=== PATIENT | male | born 1930 | race Caucasian/White ===

== ENCOUNTER 2016-03-18 15:25 | Inpatient (IN) | payer MEDICARE ==
[~2016-03-18] VITALS: Ht 180.3 cm; Wt 53.1 kg
[2016-03-18] VITALS (14 sets, daily range): BP systolic 101–157; BP diastolic 57–89; PULSE 103–130; RESP 20–40; O2SAT 77–98
--- NOTE | 2016-03-18 15:59 | ED.REPORT ---
HPI-Dyspnea / Wheezing Date of Service Mar 18, 2016 ED Provider: Naeem Fuentes MD History of Present Illness: OCC Pt is an 85 year old male with a hx of stage 4 COPD and DM presenting to the ED via EMS complaining of SOB worsened in the last 8-10 days. Associated symptoms include one day of diarrhea. Denies nausea, vomiting or swelling. He states that he has had recent stressors, his daughter was critically ill in the hospital. The pt's daughter states that he has been coughing less than normal in the last 3 days. He denies a recent medication change, recent antibiotic use , or hx of heart problems. He has had previous similar symptoms. The pt is normally on 3 L O2 at home but increased to 4 L with his worsened symptoms. Pt last saw Dr. Wick 3 or 4 weeks ago. Nursing Notes Stated Complaint: DIFFICULTY BREATHING Chief Complaint: Respiratory Distress Nursing Notes Reviewed: Yes ([employer] not reconciled) Allergies: Coded Allergies: No Known Allergies (Verified , 03/18/16) Scheduled Budesonide/Formoterol 160-4.5 mcg Inh (Symbicort 160-4.5 mcg Inh) 120 Puff Inhaler 1 PUFF INHALATION BID Glipizide (Glipizide) 5 Mg Tablet 2.5 MG PO BID Metformin (Glucophage) 1,000 Mg Tablet 1,000 MG PO BID Simvastatin (Simvastatin) 20 Mg Tablet 10 MG PO HS General Time Seen by MD: 15:57 Chief Complaint Shortness of breath Hx Obtained From: Patient, EMS Arrived By: Ambulance Sudden in Onset?: No Onset Occurred: 1 week ago Symptom Duration: Since onset Quality: Painful Severity: Current: Mild Severity: Maximum: Mild Recent Healthcare: No recent doctor visit, No recent hospitalization Similar Sx Previous: Yes Past Medical History Past Medical History COPD on home O2 at 3 L at baseline Type II diabetic Hypercholesterolemia Reports: COPD (Stage 4), Diabetes mellitus Past Surgical History Bowel Obstruction Reports: Appendectomy Smoking History Former Smoker Social History Drug Use: Denies drug use Review of Systems Respiratory: Reports: Shortness of breath, Denies: Non-productive cough Musculoskeletal: Denies: Extremity swelling Complete sys rev & neg: except as marked. GI: Reports: Diarrhea, Denies: Nausea, Vomiting Physical Exam Initial Vital Signs Vital Signs (First) Date Time Temp Pulse Resp B/P Pulse Ox O2 Delivery O2 Flow Rate FiO2 03/18/16 15:51 36.3 118 24 148/58 94 Nasal Cannula 4.5 Initial VS: Reviewed, Vital signs abnormal Head / Eyes: Atraumatic, Normocephalic, PERRL ENT: Mucous membranes moist, Conjunctiva normal, No scleral icterus Abdomen / GI: Soft, Non-tender, No guarding, No rebound, No distention Extremities: Vascular intact, Neuro intact, No swelling, No tenderness Skin: Warm, Dry, No cyanosis Neurologic: Alert, Oriented, Nonfocal Psychiatric: Mood/affect normal, Behavior normal, Normal thought content General/Constitutional: Awake, Alert Appearance / Presentation: Positive: Cachectic, Frail Globally weak. Respiratory / Chest: No chest tenderness Wheezing / Retractions: Positive: Wheeze insp/exp diffuse (In all browning) Rales / Rhonchi: Positive: Rhonchi diffuse (In all browning) Hacking cough and rhonchi audible from across the room. Dyspnic which he reports is baseline. Lower Extremity / Pelvis / MS: No edema Interpretation & Diagnostics Interpretation & Diagnostics: BLOOD GAS: pH:7.206 pCO2:84 pO2:60.6 cHCO3:31.8 cBase:1.3 - indicative of acute hypercapnic respiratory failure Lab Results Interpretation Result Diagram: 03/18/16 1547 03/18/16 2145 Test 03/18/16 15:47 03/18/16 17:03 03/18/16 18:11 White Blood Count 11.7th/mm3 (3.8-10.1) Red Blood Count 4.89mil/mm3 (4.40-5.80) Hemoglobin 14.5g/dL (13.8-17.2) Hematocrit 46.1% (41.0-50.0) Mean Corpuscular Volume 94.3fL (81-100) Mean Corpuscular Hemoglobin 29.7pg (27.0-35.0) Mean Corpuscular Hemoglobin Concent 31.5% (32.0-37.0) Red Cell Distribution Width 13.6% (12.3-15.4) Platelet Count 400bil/L (150-400) Neutrophils (%) (Auto) 65.6% (40-74) Lymphocytes (%) (Auto) 19.4% (14-46) Monocytes (%) (Auto) 14.2% (4-12) Eosinophils (%) (Auto) 0% (0-5) Basophils (%) (Auto) 0.3% (0-3) Hold Purple Top Tube Received (Received) Hold Blue Top Tube Received (Received) Sodium Level 136mEq/L (134-144) Chloride Level 92mEq/L (97-108) Carbon Dioxide Level 29mmol/L (18-29) Blood Urea Nitrogen 21mg/dL (8-27) Creatinine 0.53mg/dL (0.76-1.27) Estimat Glomerular Filtration Rate 157mL/min (>59) Glucose Level 296mg/dL (60-99) Calcium Level 9.8mg/dL (8.5-10.1) Magnesium Level 2.0mg/dL (1.6-2.6) Total Bilirubin 0.6mg/dL (0.0-1.2) Aspartate Amino Transf (AST/SGOT) 28U/L (0-50) Alanine Aminotransferase (ALT/SGPT) 31U/L (0-44) Alkaline Phosphatase 86U/L (25-160) Troponin T < 0.010ug/L (0.0-0.011) Total Protein 7.9g/dL (6.4-8.4) Albumin 3.5g/dL (3.4-5.0) Hold Red Top Tube Received (Received) Hold [place] Top Tube Received (Received) Lactic Acid Level 1.6mmol/L (0.4-2.0) Urine Color Yellow (YELLOW) Urine Appearance Clear (CLEAR,HAZY) Urine pH 5.5 (5.0-8.0) Urine Specific [place] 1.037 (1.003-1.035) Urine Protein 100mg/dL (NEG,TRACE) Urine Glucose (UA) 500mg/dL (NEGATIVE) Urine Ketones 15mg/dL (NEGATIVE) Urine Occult Blood Negative (NEGATIVE) Urine Nitrite Negative (NEGATIVE) Urine Bilirubin Negative (NEGATIVE) Urine Urobilinogen Normalmg/dL (NORMAL) Urine Leukocyte Esterase Negative (NEGATIVE) Urine RBC 0-2/hpf (0-2) Urine WBC 6-10/hpf (0-5) Urine Epithelial Cells Few/hpf (NONE-MOD) Urine Crystals Amorphous urates (NONE Urine Bacteria Moderate/hpf (NONE-FEW) Urine Hyaline Casts 5/20/lpf (NONE) Urine Granular Casts None seen (NONE SEEN) Urine Waxy Casts None seen (NONE SEEN) Urine Red Blood Cell Casts None seen (NONE SEEN) Urine White Blood Cell Casts None seen (NONE SEEN) Urine Mucus Present (None Seen) Urine Trichomonas None seen (NONE SEEN) Urine Yeast None (NONE SEEN) Urinalysis Comment None Urine Culture Reflexed Indicated Lab Results Interpretation: CBC mild leukocytosis CMP marginally elevated potassium of uncertain significance Lactic acid is normal Troponins normal Blood cultures 2 pending Influenza screen negative ECG Interpretation ECG Interpretation: Sinus tachycardia, rate 102. Borderline RBBB. Non-specific T wave abnormalities inferioirally. No prior EKG for comparison. Time: 17:20 Interpreted by: ED physician ECG Interpretation: More tachycardic but has received multiple nebs. More movement making baseline slightly more difficult. Overall unchanged. Time: 19:48 Interpreted by: ED physician X-Ray Chest Interpretation Chest Xray Interpretation: IMPRESSION: Patchy pulmonary radiopacity suspicious for aspiration/infection. Short interval followup is recommended to ensure resolution of this finding and exclude underlying pulmonary pathology. Dictated by: Moraima Viera M.D. on 03/18/2016 at 18:05 View: Portable, 1 view Interpretation / Wet Read by: Interpret - Radiologist Re-Eval/Medical Decision Med Decision/Clinical Course This is an 85-year-old female on home O2 with baseline COPD presents with worsening shortness breath cough. The family has noted audible rhonchi and shortness of breath worsening over the past 2 days. It is unclear if there has been a fever, the patient does not think that woke- the family thinks there may have been. He denies chest pain, leg edema. He is turned his O2 up at home to 4 L. Here in the department he is visibly dyspneic, has decreased air movement, is audible rhonchi across the room, and audible wheezes as well throughout on exam. Think that his work of breathing is close to his baseline. He has only trace edema at the ankles, which she states is chronic and unchanged has no findings of overt DVT on exam. A chest x-ray suggestive of pneumonia superimposed on COPD. Blood work is notable for moderate leukocytosis. Patient received albuterol, Atrovent, steroids, and was started on ceftriaxone and Zithromax for community acquired pneumonia. The patient on reevaluation she seemed to be doing well. But I was called by the nurses as he had. We got worse his heart rate increased, his sat decreased , they seem to be more short of breath. Patient seemed to be tiring slightly. At this point a blood gas was obtained and did reveal hypercapnic respiratory failure. I discussed CODE STATUS, the patient does wish to be intubated and be full code if needed, does not wish sustained ventilatory support. He preferred noninvasive support initially, was immediately placed on BiPAP with ongoing continuous nebs. He did seem to improve with this. He had risk for deterioration given underlying pneumonia, but I think is reasonable given he has a baseline component of significant COPD to see if intubation can be avoided. The patient is being admitted to the unit. The case discussed the hospitalist. Source of Hx: Old records Re-Evaluation/Progress #1: Time of Eval: 18:38 Patient Status: Condition improved Re-Evaluation/Progress Note: Discussed X ray results. Re-Evaluation/Progress #2: Time of Eval: 20:55 Patient Status: Condition improved Re-Evaluation/Progress Note: Pt is still mentating well, says he feels better. Still some wheezes, but he is tolerating BiPAP well. Consultation : Referral / Consult Name: Matheus Liang MD Consulted With: Hospitalist Call Returned at: 19:12 Tractor Driver: Will see patient, Agrees with plan, Accepts admit Differential Diagnosis: Positive: COPD exacerbation, Pneumonia, Respiratory failure, Negative: Acute coronary syndrome, Cardiogenic shock, Congestive heart failure, Exercise induced asthma, Foreign body airway, PSVT, Pneumothorax, Pulmonary embolism, Respiratory insufficiency Counseled Regarding: Diagnosis, Lab results, Need for follow-up, When/why to return to ED Discharge & Departure Impression: Primary Impression: Pneumonia Pneumonia type: due to unspecified organism Laterality: unspecified laterality Lung location: unspecified part of lung Qualified Code: B99.9 - Unspecified infectious disease Additional Impressions: COPD (chronic obstructive pulmonary disease) COPD type: COPD with acute lower respiratory infection Qualified Code: J44.0 - Chronic obstructive pulmonary disease with acute lower respiratory infection Respiratory failure Chronicity: acute Respiratory failure complication: hypoxia and hypercapnia Qualified Code: J96.01 - Acute respiratory failure with hypoxia Disposition: ADMITTED TO HOSPITAL Discharge Condition All VS Reviewed: Yes Condition: Improved Referrals: Preston Cervantes MD (Family) Dora Wick MD Crit Care Except Billable Proc Time Spent: 30-74 minutes Services Performed: Patient management by me, Time spent at bedside, Reviewing test results, Reviewing imaging, Discussing patient care, Documentation in record Scribe Attestation Portions of this note were transcribed by Hope Magaña. I, Dr. Fuentes personally performed the history, physical exam and medical decision-making; I reviewed and confirmed the accuracy of the information in the transcribed note. Signed by: Indra Jara, 03/18/2016 and 1913. copies to: Dora Wick MD; Preston Cervantes MD, Matthew F MD Mar 18, 2016 15:59 HOPE MAGAÑA Mar 18, 2016 16:19
[2016-03-18] MEDS ORDERED: Ipratropium 0.02% 0.5 mg/2.5 mL Inhalation Solution NEB ONE ×2 (16:35→20:55)
[2016-03-18] MEDS ORDERED: MethylprednisoLONE Sodium Succinate 62.5 mg/mL 2 mL Inj IVPUSH ONE (16:35)
[2016-03-18] MEDS ORDERED: Albuterol 2.5 mg/3 mL Inhalation Solution NEB ONE ×3 (16:35→20:55)
[2016-03-18 16:49] LABS: EOSINOPHILS % (AUTO) 0 % (0-5); Mean Corpuscular Hemoglobin 29.7 pg (27.0-35.0)
[2016-03-18 16:53] LABS: BASOPHILS % (AUTO) 0.3 % (0-3); MONOCYTES % (AUTO) 14.2 % (4-12); Mean Corpuscular Volume 94.3 fL (81-100); NEUTROPHILS % (AUTO) 65.6 % (40-74); Platelet Count 400 bil/L (150-400)
[2016-03-18 17:07] LABS: TROPONIN T < 0.010 ug/L (0.0-0.011)
--- NOTE | 2016-03-18 18:08 | DRSVH ---
PROCEDURE: X-RAY CHEST ONE VIEW, PORTABLE ([id number]) INDICATIONS: sOB TECHNIQUE: One view of the chest was acquired. COMPARISON: None. FINDINGS: Surgical changes and devices: None. Lungs and pleura: Patchy opacities are present bilaterally most confluent at the left lung base. No p leural effusion or pneumothorax. The lung volumes are large and the diaphragms are flattened suggesti ng emphysema. Mediastinum: Mediastinal contours appear normal. Heart size is normal. The aortic arch is calcifie d. Bones and chest wall: No suspicious bony lesions. Overlying soft tissues appear unremarkable. IMPRESSION: Patchy pulmonary radiopacity suspicious for aspiration/infection. Short interval followup is recommended to ensure resolution of this finding and exclude underlying pulmonary pathology. Dictated by: Moraima Viera M.D. on 03/18/2016 at 18:05 Approved by: Moraima Viera M.D. on 03/18/2016 at 18:06
[2016-03-18] MEDS ORDERED: Azithromycin Inj 500 MG in Dextrose 5% w/Vial Mate 250 ML IV ONE (18:20)
[2016-03-18] MEDS ORDERED: cefTRIAXone Inj 2 GM in IV Premix 1 EACH IV ONE (18:20)
[2016-03-18 18:40] LABS: APPEARANCE,URINE CLEAR (CLEAR,HAZY); COLOR,URINE YELLOW (YELLOW); OCCULT BLOOD,URINE NEGATIVE (NEGATIVE); PH,URINE 5.5 (5.0-8.0); UROBILINOGEN,URINE NORMAL (NORMAL)
[2016-03-18] MEDS ORDERED: Polyethylene Glycol (PEG) 17 Gm Powder PO PRN (19:35)
[2016-03-18] MEDS ORDERED: Alum-Mag Hydrox-Simeth 30 mL Suspension PO PRN (19:35)
[2016-03-18] MEDS ORDERED: SYMINH INHALATION (19:40)
[2016-03-18] MEDS ORDERED: METF1000 PO (19:40)
[2016-03-18] MEDS ORDERED: ALBU6.7H INH (19:40)
[2016-03-18] MEDS ORDERED: GLPZ5T PO (19:40)
[2016-03-18] MEDS ORDERED: SIMV10TA4 PO (19:40)
--- NOTE | 2016-03-18 20:08 | ABG ---
DateTimeAnalyzed 20:03:00 -_ pH ____7.206 - 7.350 7.450 pCO2 ___83.5__ -mmHg 35.0 45.0 pO2 ___60.6__ -mmHg 69.0 116 HCO3- ___31.8__ -mmol/L 22.0 26.0 ABE ____1.3__ -mmol/L -2.0 2.0 tHb ___14.1__ -g/dL O2Hb ___83.4__ -% COHb ____0.7__ -% MetHb ____0.8__ -% sO2 ___84.7__ -% 25.0 FIO2 ____0.3__ -% Drawn By RB - Date/Time Notified____ 20:08:00 -_ Notified By RB - Notified Whom DR - B 762 -mmHg tO2 ___16.5__ -Vol% Augustine test _Positive -
[2016-03-18] MEDS: Albuterol-Ipratropium 3 mL Inhalation Solution NEB SCH (20:30)
[2016-03-18] MEDS ORDERED: Albuterol 2.5 mg/3 mL Inhalation Solution NEB SCH (20:30)
[2016-03-18] MEDS ORDERED: SIMV20TA4 PO (20:37)
--- NOTE | 2016-03-18 20:41 | PCM.HPMED ---
Subjective Date of Service Mar 18, 2016 Primary Provider: Admitting Physician: [facility] Attending Physician: Admit Status: From the Emergency Department, Remote Telemetry Chief Complaint: difficulty breathing History of Present Illness: Patient is an 85 year old male with a hx of stage 4 COPD and DM2 presenting to the ED via EMS complaining of SOB and cough, which worsened in the last 8-10 days. Patient states he has been coughing up more phlegm than usual, feeling feverish with chills for the past 2 days. Associated symptoms include one day of diarrhea, which has now resolved. Patient is usually on 3L of oxygen at home , but has increased t o 4L with worsening shortness of breath. Denies mylagias, CP, abdominal pain, nausea, vomiting or swelling. Patient states that his daughter which he lives with, had been coughing much and per ED records, have been critically ill in the hospital. The pt's daughter states that he has been coughing less than normal in the last 3 days. He denies a recent medication change, recent antibiotic use, or hx of heart problems. He has had previous similar symptoms. Pt last saw PCP, Dr. Wick 3 or 4 weeks ago. In the ED, patient afebrile with HR 118, RR 24, BP 140/58, saturating at 94% on 4.5L of oxygen. Labs significant for WBC 11.7 and K 5.5, glucose 296. Lactic acid 1.6. Troponin negative. ABG with pH 7.206, CO2 83.5, O2 60.6. CXR showed "Patchy pulmonary radiopacity suspicious for aspiration/infection.", patient was admitted for further evaluation and treatment. Review of Systems: 11 point ROS reviewed and negative otherwise noted on HPI. Allergies Coded Allergies: No Known Allergies (Verified , 03/18/16) Home Medications Symbicort 160-4.5 inhaler BID Floventil 90mcg 1 puff PRN Metformin 1000mg BID Glipizide 5mg daily Simvastatin 20mg 1/2 tablet qHS PMH Stage 4, COPD on 3L of oxygen at home DM2 Hypercholesteremia Surgical History Bowel obstruction Appendectomy Social History Hx Alcohol Use: No Hx Substance Use: No Hx Tobacco Use: Yes (quit 30 years ago) Smoking Status: Former Smoker Exam Vital Signs Vital Sign - Last Date Time Temp Pulse Resp B/P Pulse Ox O2 Delivery O2 Flow Rate FiO2 03/18/16 19:34 123 24 157/89 95 Venturi Mask 8 03/18/16 15:51 36.3 Exam GEN: Elderly cachectic frail appearing gentleman in moderate respiratory distress, alert and oriented HEENT: NC/AT, EOMI, PERRL, sclera anicteric, dry mucous membranes Neck: Supple with full ROM CV: Tachycardia with regular rhythm, soft murmur appreciated, peripheral pulses normal Lungs: Diffused rhonchi, tight sounding chest, poor inspiratory effort, using chest and abdomen to breath ABD: Scaphoid, soft, non-tender, no organomegaly, normal active bowel tones Skin: poor skin turgor, pale, no rash EXT: no edema, cyanosis Lab and Diagnostics Result Diagram: 03/18/16 1547 03/18/16 1547 X-Rays, CTs and MRIs Date of Service: 03/18/16 1711 PROCEDURE: X-RAY CHEST ONE VIEW, PORTABLE ([id number]) IMPRESSION: Patchy pulmonary radiopacity suspicious for aspiration/infection. Short interval followup is recommended to ensure resolution of this finding and exclude underlying pulmonary pathology. Dictated by: Moraima Viera M.D. on 03/18/2016 at 18:05 12-lead ECG ECG Interpretation: Sinus tachycardia, rate 102. Borderline RBBB. Non-specific T wave abnormalities inferiorally. No prior EKG for comparison. Time: 17:20 Interpreted by: ED physician ECG Interpretation: More tachycardic but has received multiple nebs. More movement making baseline slightly more difficult. Overall unchanged. Time: 19:48 Interpreted by: ED physician Assessment & Plan Patient is an 85 year old male with a hx of stage 4 COPD, usually on 3L of oxygen, and DM2 presenting to the ED via EMS complaining of SOB and cough, which worsened in the last 8-10 days. secondary to pneumonia Acute on chronic respiratory failure, present on admission. Active. - meets sepsis criteria (HR 118, RR24), but most likely due to pneumonia and COPD exacerbation - patient received one dose of Solu-Medrol 125mg in ED - Albuterol PRN - DuoNebs Q4H Respiratory acidosis with metabolic alkalosis, present on admission. Active. - ABG in ED with pH 7.206, CO2 83.5, O2 60.6 HCO3 31.8 - metabolic alkalosis most likely due to compensation to chronic CO2 retention, normal range on BMP Community acquired pneumonia, present on admission. Acute. - CURB 65 score of 2 - CXR showed "Patchy pulmonary radiopacity suspicious for aspiration/infection. " - Flu screen neg - Ceftriaxone and Azithromycin started in ED will continue - Sputum Cx pending - Viral PCR, strep pneumo pending - Legionella ag ordered due to hx of diarrhea - BCx, UCx, Procalcitonin pending Possible COPD exacerbation, present on admission. Active. - patient received one dose of Solu-Medrol 125mg in ED - treatment as above - keep oxygen saturation 88-92% - Consider prednisone 40mg for next 5 days if patient tolerating oral intake Hyperkalemia, present on admission. Active. - telemetry - patient getting albuterol treatment - recheck tonight QT prolongation, present on admission. Active. - telemetry - avoid all QT prolongation medications Diabetes Mellitus Type 2, present on admission. - Metformin and Glipizide held - on low dose correctional scale insulin protocol - A1c pending - Acetaminophen as needed for mild pain/fever/headache - Bowel regimen as needed - Antiemetic as needed Patient admitted under inpatient status with expected length of stay > 2 midnights for severity of present symptoms, complexities of treatment plan and risk for adverse events. DVT: Heparin SubQ GI: not indicated CODE: FULL Pain Evaluation: Adequate Pain Control VTE Prophylaxis: Sub-Q Heparin (Unfractionated) Resuscitation Status: CPR: Attempt Resuscitation Attending Statement The patient was seen and examined together with Dr. Snow on 03/18 and I agree with the history, exam and plan as outlined in the note above. Martell Snow DO Mar 18, 2016 19:42 Matheus Liang MD Mar 18, 2016 22:09
[2016-03-18] MEDS ORDERED: Glucose 40% Oral Gel 15 Gm Tube PO PRN (20:45)
[2016-03-18] MEDS: 0.9% Sodium Chloride 1,000 ML IV SCH (20:57)
--- NOTE | 2016-03-18 21:58 | NUR ---
Report called to Dustin Coy RN.
[2016-03-18] MEDS: Insulin LISPRO 300 Unit/3 mL Inj SUBQ SCH (23:05)
[2016-03-19] VITALS (14 sets, daily range): BP systolic 98–175; BP diastolic 60–78; PULSE 80–158; RESP 18–27; O2SAT 92–99
[2016-03-19] MEDS: Heparin 5,000 Unit/mL Inj SUBQ SCH ×3 (00:15→17:40)
[2016-03-19] MEDS ORDERED: Albuterol 2.5 mg/3 mL Inhalation Solution NEB PRN (00:30)
[2016-03-19] MEDS ORDERED: Albuterol 2.5 mg/3 mL Inhalation Solution NEB SCH (00:30)
[2016-03-19] MEDS: Albuterol-Ipratropium 3 mL Inhalation Solution NEB SCH ×6 (00:34→19:56)
[2016-03-19 03:46] LABS: BASOPHILS % (AUTO) 0.1 % (0-3); EOSINOPHILS % (AUTO) 0 % (0-5); MONOCYTES % (AUTO) 4.6 % (4-12); Mean Corpuscular Hemoglobin 29.9 pg (27.0-35.0); Mean Corpuscular Volume 94.9 fL (81-100); NEUTROPHILS % (AUTO) 84.5 % (40-74); Platelet Count 299 bil/L (150-400)
--- NOTE | 2016-03-19 04:07 | NUR ---
Cardiac/Resp Admitted to room 2017, patient pleasant and cooperative, orientated to room, no distress noted, vital signs as noted, on BiPAP and tolerating well, 30% FIO2, HR 70-120's sinus arrhythmia/ST with PAC's and PVC's, RR 23 at this time, uneventful shift, AM labs pending, patient stated he is feeling better this AM, no distress noted, will continue to monitor. Addendum: 03/19/16 at 0448 by JAD HARVEY RN Amended: Links added.
[2016-03-19] MEDS: 0.9% Sodium Chloride 1,000 ML IV SCH ×3 (07:20→18:58)
[2016-03-19] MEDS: predniSONE 20 mg Tablet PO SCH (07:56)
[2016-03-19] MEDS: Fluticasone-Salmererol 250-50 Inhaler INHALATION SCH ×2 (07:56→20:19)
[2016-03-19] MEDS: Insulin LISPRO 300 Unit/3 mL Inj SUBQ SCH ×4 (07:57→20:26)
[2016-03-19] MEDS ORDERED: Labetalol 5 mg/mL 4 mL Inj IVPUSH ONE (11:15)
--- NOTE | 2016-03-19 11:31 | ABG ---
DateTimeAnalyzed 11:26:00 -_ pH ____7.412 - 7.350 7.450 pCO2 ___48.7__ -mmHg 35.0 45.0 pO2 ___65.8__ -mmHg 69.0 116 HCO3- ___30.4__ -mmol/L 22.0 26.0 ABE ____5.3__ -mmol/L -2.0 2.0 tHb ___12.8__ -g/dL O2Hb ___91.5__ -% COHb ____1.1__ -% MetHb ____0.8__ -% sO2 ___93.3__ -% 25.0 FIO2 ___32.0__ -% Drawn By jmw - Date/Time Notified____ 11:30:00 -_ Liter_Flow ____3.0__ -L/min Oxygen Device 1 __OXYMASK - Notified By jmw - Notified Whom DR VIDA - B 764 -mmHg tO2 ___16.5__ -Vol% Augustine test _Positive -
--- NOTE | 2016-03-19 13:22 | NUR ---
NUTRITION ASSESSMENT ASSESS: Pt is an 85 yo male admitted w/ acute on chronic respiratory failure and community acquired pneumonia. Pt states experiencing SOB and coughing which have progressively worsened in the last 8-10 days. Pt is on Bipap, and states feeling slightly better. Pt reports poor appetite, and primarily consumes 3 Ensure drinks a day for his energy intake. Pt requested Ensure during his hospital stay. His current usual body weight is 61.4 kg, but reports losing weight the last couple years. His previous usual body weight was 75 kg. Pt admit weight of 67.6 kg noted from 2006. PMHX: Stage 4 COPD, DM Type II, Hypercholesterolemia, Bowel Obstruction Surgery, Appendectomy LABS: Reviewed. [employer] Finishing Supervisor 0.56, Gluc 294, A1C 7.2, Alb 3.5 MEDS: Reviewed. Insulin, Lipitor GI: No BM reported yet. DIET: Diabetic No PO recorded yet. NUTRITION FOCUSED PHYSICAL ASSESSMENT GI: No BM reported yet. SKIN: Manjinder 14 redness noted on posterior buttock OVERALL APPEARANCE: Visible loss of muscle throughout body. Prominent clavicle and squaring of shoulders. Pt reports loss of muscle in legs. CURRENT WT: 54.5 kg BMI: 16.8 kg/m2 ADMIT WT: 56.8 kg IBW: 78 kg (70% IBW) UBW: 61.4 kg (11.2% wt. loss in two years) EST. NEEDS: Underweight, COPD Kcals: 6390-2641 kcal/day (30-35 kcal/kg BW) Pro: 94-115 g/day (1.2-1.5 g/kg IBW) NUTRITION DIAGNOSIS: 1.) Moderate protein calorie malnutrition related to chronic illnesses as evidenced by reported PO intake of less than 75% of estimated needs in last 7 days to one month, severe loss of LBM and subcutaneous fat, reported unintentional wt loss of 6.9 kg (11.2% wt loss) in the last two years, and BMI of 16.8 kg/m2. 2.) Increased nutrient needs related to chronic illness as evidenced by COPD. NUTRITION INTERVENTION: 1.) Add supplement chocolate Glucerna to trays TID. 2.) Provided High Calorie, High Protein recipe book and discussed strategies for increasing calorie and protein intake. MONITOR / EVAL: PO intake, wt, GI, labs, POC. Will continue to monitor per high nutritional risk guidelines. Addendum: 03/19/16 at [address] Student documentation reviewed and I agree with the above assessment. Wendi Mora, MS, RDN, CD
[2016-03-19] MEDS ORDERED: Diltiazem CD 120 mg ER24 Capsule PO SCH (13:40)
[2016-03-19] MEDS ORDERED: Diltiazem 5 mg/mL 5 mL Inj IVPUSH ONE (16:40)
--- NOTE | 2016-03-19 16:45 | DRSVH ---
[facility] [address] [place] [address] Echocardiogram Report Name: JESSICA HELLER LStudy Date: 03/19/2016 Height: 71 in Hospital Exam Location: [facility] Weight: 120 lb Gender: Male BSA: 1.7 m2 : 1930 Age: 85 yrs BP: 125/68 mmHg Reason For Study: AFIB Ordering Physician: Performed By: Denys Millan Referring Physician: YOLI Interpretation Summary 1. Normal left ventricular size, wall thickness with globally reduced LV systolic function and an estimated EF of 35% 2. Normal right ventricular size and systolic function 3. No evidence for significant valvular pathology Compared to the previous study of 2006 (images reviewed), the rhythm has changed and the LV function appears reduced. Procedure: A two-dimensional transthoracic echocardiogram with color flow and Doppler was performed. The study quality was technically difficult. Comparison is made with the echocardiogram of 12/21/06. A contrast injection of Definity was performed to improve assessment of LV function. Rhythm is atrial fib versus sinus rhythm with frequent PACs. Left Ventricle: The left ventricle is normal in size. There is normal left ventricular wall thickness. Left ventricular ejection fraction is estimated to be 35%. Right Ventricle: The right ventricle is normal in size and function. Atria: Both atria are normal in size. No color doppler evidence for an ASD. Mitral Valve: The leaflets have mild sclerotic changes. There is trace mitral regurgitation. Aortic Valve: The aortic valve is not well visualized. In the images obtained, valve appears to open well. There is no hemodynamically significant valvular aortic stenosis. No aortic regurgitation is present. Tricuspid Valve: The tricuspid valve leaflets are thin and pliable. There is trace tricuspid regurgitation. Pulmonary artery pressures cannot be estimated because of the lack of a measurable TR jet velocity. Pulmonic Valve: The pulmonic valve is not well visualized. There is trace pulmonic regurgitation. Great Vessels: The aortic root is normal size. The ascending aorta could not be visualized. The IVC is of normal diameter and collapses greater than 50% with a sniff. This suggests a low right atrial pressure of 3 mm Hg. Pericardium/ Pleura There is no pericardial effusion. There is no pleural effusion. MMode/2D Measurements & Calculations LVIDd LA dimension RA long axis: 4.1 cm Ao root diam: 3.2 cm : 5.0 cm LVIDs LA A2 area RA area: 12.2 cm : 3.6 cm RA vol: 31.0 ml FS: 27.3 % RA : 18.3 ml/m2 EPSS: 1.3 cm LA A4 area IVSd : 0.7cm LA length (vol) LVPWd : 0.9cm LA vol: 45.4 ml LA vol index IVC diam: 2.0 cm LVAd ap4 LVAd ap2 LV briceño. diameter/BSA LV sys. diameter/BSA : 19.2 2m : 23.8 cm (cm/m^2): 2.9 (cm/m^2): 2.1 LVLd ap2: 6.9 cm EDV(MOD-sp2) EDV(sp2-el) : 72.7 ml Doppler Measurements & Calculations Ao V2 max MV E max shaan MV E/A: 0.90 PA V2 max: 89.6 cm/sec : 113.5 cm/sec : 79.0 cm/sec Med Peak E' Shaan PA mean P.9 mmHg Ao max PG MV A max shaan PA Accel Time: 0.13 sec : 5.1 mmHg : 87.7 cm/sec E/E' med: 13.9 Ao mean PG Pulm A Revs Dur : 3.1 mmHg MV A dur: 0.11 sec MV dec time Ao V2 mean PA V2 mean Pulm A Revs Dur - MV A : 0.20 sec : 85.9 cm/sec : 67.3 cm/sec Dur: 0.01 msec Ao V2 VTI PA pr(Accel) : 22.2 cm : 19.1 mmHg Reading Physician:04:44 PM
[2016-03-19] MEDS: cefTRIAXone Inj 2,000 MG in Dextrose 5% Minibag Plus 50 ML IV SCH (17:42)
--- NOTE | 2016-03-19 18:19 | PCM.PNMED ---
Subjective Date of Service Mar 19, 2016 Subjective Bernardo Butt is an 85 year old male with a hx of stage 4 COPD and DM2 presenting to the ED via EMS complaining of SOB and cough, which worsened in the last 8-10 days. Admitted and treated for influenza A and acute hypercarbic respiratory failure. Hospital day 2. Overnight: Patient was admitted and placed on BPAP. No acute events. Today: Patient alert and oriented and switched from BPAP to oxygen mask. He states his breathing is much improved. He denies any chest pain, palpitations, nausea, vomiting, abdominal pain, fever, or chills. Remaining review of systems negative. Exam Vital Signs Vital Sign - Last Date Time Temp Pulse Resp B/P Pulse Ox O2 Delivery O2 Flow Rate FiO2 03/19/16 04:45 36.6 86 18 120/72 97 BiPAP 30 03/18/16 20:37 3 Intake and Output 03/18/16 03/18/16 03/19/16 Cumulative From/Thru 15:00 23:00 07:00 03/18/16 15:51 - 03/19/16 05:00 Intake Total 50 ml 727 ml 777 ml Output Total 50 ml 50 ml Balance 50 ml 677 ml 727 ml Intake Oral 120 ml 120 ml IV Total 50 ml 607 ml 657 ml Output Urine Total 50 ml 50 ml Exam GEN: Elderly cachectic frail appearing gentleman in moderate respiratory distress, alert and oriented HEENT: NC/AT, EOMI, PERRL, sclera anicteric, dry mucous membranes Neck: Supple with full ROM CV: Tachycardia with irregular rhythm, soft murmur appreciated, peripheral pulses normal Lungs: Diffused rhonchi, tight sounding chest, poor inspiratory effort, using chest and abdomen to breath ABD: Scaphoid, soft, non-tender, no organomegaly, normal active bowel tones Skin: poor skin turgor, pale, no rash EXT: no edema, cyanosis Lab and Diagnostics Result Diagram: 03/19/165 03/19/16334 X-Rays, CTs and MRIs X-RAY CHEST ONE VIEW, PORTABLE IMPRESSION: Patchy pulmonary radiopacity suspicious for aspiration/infection. Short interval followup is recommended to ensure resolution of this finding and exclude underlying pulmonary pathology. Dictated by: Moraima Viera M.D. on 03/18/2016 at 18:05 Approved by: Moraima Viera M.D. on 03/18/2016 at 18:06 12-lead ECG ECG Interpretation: Sinus tachycardia, rate 102. Borderline RBBB. Non-specific T wave abnormalities inferiorally. No prior EKG for comparison. Time: 17:20 Interpreted by: ED physician ECG Interpretation: More tachycardic but has received multiple nebs. More movement making baseline slightly more difficult. Overall unchanged. Time: 19:48 Interpreted by: ED physician Cardiac Echo Impressions Echocardiogram Report Interpretation Summary 1. Normal left ventricular size, wall thickness with globally reduced LV systolic function and an estimated EF of 35% 2. Normal right ventricular size and systolic function 3. No evidence for significant valvular pathology Compared to the previous study of 2006 (images reviewed), the rhythm has changed and the LV function appears reduced. Reading Physician:04:44 PM Assessment & Plan Bernardo Butt is an 85 year old male with a hx of stage 4 COPD and DM2 presenting to the ED via EMS complaining of SOB and cough, which worsened in the last 8-10 days. Admitted and treated for influenza A and acute hypercarbic respiratory failure. Hospital day 2. 1. Acute on chronic hypercarbic respiratory failure, present on admission. Active. - Etiology secondary to influenza A and COPD. - Patient received one dose of Solu-Medrol 125mg in ED. - ABG in ED with pH 7.206, CO2 83.5, O2 60.6 HCO3 31.8. Improved this morning after BPAP. - Albuterol PRN - DuoNebs Q4H 2. Influenza A, present on admission. Active. - Oseltamivir 75 mg BID. - Treatment as above. 3. Multifocal atrial tachycardia, present on admission. Active. - Common finding in patients with COPD. - Diltiazem 120 mg PO BID. - Diltiazem 10 mg IV given additionally. - Echo pending. - Monitor on telemetry. 4. Possible community acquired pneumonia, present on admission. Active. - CURB 65 score of 2 - CXR showed "Patchy pulmonary radiopacity suspicious for aspiration/infection. " - Ceftriaxone and Azithromycin started in ED will continue till repeat labs in the morning. - Strep pneumonia and legionella negative. - Procalcitonin 0.17. 5. Acute COPD exacerbation, present on admission. Active. - One dose of Solu-Medrol 125mg in ED. - Prednisone 40 mg daily. - Supplemental oxygen as needed to maintain oxygen saturation of 88-92%. - DuoNebs Q4H - Fluticason/Salmeterol BID 6. Hyperkalemia, present on admission. Resolved. - No EKG changes. - Potassium normalized this morning. 7. QT prolongation, present on admission. Active. - Monitoring on telemetry. - Avoid QT prolongation medications. 8. Diabetes Mellitus Type 2, present on admission. - Metformin and Glipizide held - on low dose correctional scale insulin protocol - Hemoglobin A1c 7.2. - Acetaminophen as needed for mild pain/fever/headache - Bowel regimen as needed - Antiemetic as needed Disposition: Patient to discharge in 2-3 days pending respiratory improvement and rate control. Likely discharge home possibly with home health. Pain Evaluation: Adequate Pain Control GI Prophylaxis: Not indicated VTE Prophylaxis: Sub-Q Heparin (Unfractionated) VTE Mechanical Devices: Intermittant Pneumatic CD Resuscitation Status: CPR: Attempt Resuscitation Attending Statement The patient was seen and examined together with Dr. Mcpherson on 03/19/2016 and I agree with the history, exam and plan as outlined in the note above. . ADAIR MCPHERSON DO Mar 19, 2016 06:51 Preston Moser MD Mar 20, 2016 07:38
[2016-03-19] MEDS ORDERED: Azithromycin Inj 500 MG in Dextrose 5% w/Vial Mate 250 ML IV SCH (19:00)
[2016-03-19] MEDS ORDERED: Diltiazem Inj 125 MG in 0.9% Sodium Chloride 100 ML, Pharmacy To Mix 1 EA IV SCH (19:10)
--- NOTE | 2016-03-19 19:24 | NUR ---
Cardiac Pt Sinus Tach, PSVT. HR has been variable, with multifocal PACs and burst up into 179s, MD aware. Patient is asymptomatic with Heart rate irregularities, Denies chest pain. Administered PO Diltiazem with some decrease in HR.
--- NOTE | 2016-03-19 22:00 | NUR ---
Report given to Jasmine CANTU all questions answered, patient stable and no distress noted.
[2016-03-20] VITALS (15 sets, daily range): BP systolic 107–130; BP diastolic 39–66; PULSE 75–103; RESP 20–29; O2SAT 93–99
[2016-03-20] MEDS: Albuterol-Ipratropium 3 mL Inhalation Solution NEB SCH ×6 (00:33→20:55)
[2016-03-20] MEDS: Heparin 5,000 Unit/mL Inj SUBQ SCH ×3 (01:16→16:24)
[2016-03-20 03:13] LABS: BASOPHILS % (AUTO) 0.2 % (0-3); EOSINOPHILS % (AUTO) 0 % (0-5); MONOCYTES % (AUTO) 12.9 % (4-12); Mean Corpuscular Hemoglobin 30.3 pg (27.0-35.0); Mean Corpuscular Volume 95.1 fL (81-100); NEUTROPHILS % (AUTO) 72.8 % (40-74); Platelet Count 266 bil/L (150-400)
[2016-03-20 04:12] LABS: Phosphorus 2.1 mg/dL (2.5-4.9)
--- NOTE | 2016-03-20 07:10 | NUR ---
Pt voiding into urinal dark oli urine. Denies burning or discomfort with urination.
[2016-03-20] MEDS: Insulin LISPRO 300 Unit/3 mL Inj SUBQ SCH ×4 (08:30→22:31)
[2016-03-20] MEDS: predniSONE 20 mg Tablet PO SCH (08:32)
[2016-03-20] MEDS: Fluticasone-Salmererol 250-50 Inhaler INHALATION SCH ×2 (08:32→20:30)
--- NOTE | 2016-03-20 11:26 | PCM.PNMED ---
Subjective Date of Service Mar 20, 2016 Subjective Bernardo Butt is an 85 year old male with a history of stage 4 COPD and diabetes mellitus type 2 presenting to the ED via EMS complaining of SOB and cough, which worsened in the last 8-10 days. Admitted and treated for influenza A, acute hypercarbic respiratory failure, MAT, and newly diagnosed systolic heart failure. Hospital day 3. Overnight: Patient place on diltiazem drip. No acute events overnight. Today: Patient alert and oriented and currently using 3L nasal cannula. He continues to complain of weakness and fatigue. Urine output minimal and appetite continues to be poor. Discussed the echocardiogram findings with him and that we would like to discuss his overall status with family present. He is agreeable. We will reach out to daughter and . He denies any chest pain, palpitations, nausea, vomiting, abdominal pain, fever, or chills. Remaining review of systems negative. Exam Vital Signs Vital Sign - Last Date Time Temp Pulse Resp B/P Pulse Ox O2 Delivery O2 Flow Rate FiO2 03/20/16 07:38 96 20 98 Nasal Cannula 4.00 03/20/16 03:37 36.7 113/56 03/19/16 09:35 32 Intake and Output 03/19/16 03/19/16 03/20/16 Cumulative From/Thru 15:00 23:00 07:00 03/18/16 15:51 - 03/20/16 04:45 Intake Total 200 ml 120 ml 1097 ml Output Total 350 ml 200 ml 600 ml Balance -150 ml -80 ml 497 ml Intake Oral 200 ml 120 ml 440 ml IV Total 657 ml Output Urine Total 350 ml 200 ml 600 ml # Bowel Movements 0 0 Exam General: Elderly cachectic frail appearing gentleman, no acute distress, appropriately interactive HEENT: Temporal wasting. Hearing aids in place. Pupils equal, round, and reactive to light and accommodation. Anicteric sclerae, moist conjunctivae, and no lid lag. Mucous membranes dry. Neck: Supple with full range of motion. Cardiovascular: Irregular rate and rhythm with soft murmur. Pulmonary: Rhonchi present in right lower lung field. No wheezes. Normal respiratory effort with no use of accessory muscles. Abdomen: Bowel tones present. Scaphoid, soft, nontender, nondistended. No hepatosplenomegaly or masses appreciated. Extremities: Muscle wasting and no edema. Skin: Normal temperature, decreased turgor, and texture; no rash, ulcers, or subcutaneous nodules appreciated. Neurological: Cranial nerves grossly intact. Normal muscle strength, tone, and bulk. Reflexes, coordination, and sensory function within normal limits. No known gait impairment. Psychiatric: Normal mood and affect. Alert and oriented to person, place, and time. Lab and Diagnostics Result Diagram: 03/20/16 0300 03/20/16 0300 X-Rays, CTs and MRIs X-RAY CHEST ONE VIEW, PORTABLE IMPRESSION: Patchy pulmonary radiopacity suspicious for aspiration/infection. Short interval followup is recommended to ensure resolution of this finding and exclude underlying pulmonary pathology. Dictated by: Moraima Viera M.D. on 03/18/2016 at 18:05 Approved by: Moraima Viera M.D. on 03/18/2016 at 18:06 12-lead ECG ECG Interpretation: Sinus tachycardia, rate 102. Borderline RBBB. Non-specific T wave abnormalities inferiorally. No prior EKG for comparison. Time: 17:20 Interpreted by: ED physician ECG Interpretation: More tachycardic but has received multiple nebs. More movement making baseline slightly more difficult. Overall unchanged. Time: 19:48 Interpreted by: ED physician Cardiac Echo Impressions Echocardiogram Report Interpretation Summary 1. Normal left ventricular size, wall thickness with globally reduced LV systolic function and an estimated EF of 35% 2. Normal right ventricular size and systolic function 3. No evidence for significant valvular pathology Compared to the previous study of 2006 (images reviewed), the rhythm has changed and the LV function appears reduced. Reading Physician:04:44 PM Assessment & Plan Bernardo Butt is an 85 year old male with a hx of stage 4 COPD and DM2 presenting to the ED via EMS complaining of SOB and cough, which worsened in the last 8-10 days. Admitted and treated for influenza A and acute hypercarbic respiratory failure. Hospital day 3. 1. Acute systolic heart failure, present on admission. Active. - Newly diagnosed with echo 03/20 showing global hypokinesis of the left ventricle and an EF of 35%. - Aspirin 81 mg daily. - Lisinopril 2.5 mg daily. - Metoprolol succinate 12.5 mg daily. - We will consider adding spironolactone. - Likely not an AICD candidate at this time due to age and comorbidities. - Cardiology consulted. Appreciate time and expertise. 2. Influenza A, present on admission. Active. - Oseltamivir 75 mg BID. - Treatment as above. 3. Multifocal atrial tachycardia, present on admission. Active. - Common finding in patients with COPD. - Diltiazem gtt started on 03/19 at 1999. We will attempt to convert to oral medications today. - Monitor on telemetry. 4. Acute on chronic hypercarbic respiratory failure, present on admission. Active. - Etiology secondary to influenza A and COPD. - Patient received one dose of Solu-Medrol 125mg in ED. - ABG in ED with pH 7.206, CO2 83.5, O2 60.6 HCO3 31.8. Improved this morning after BPAP. - Albuterol PRN - DuoNebs Q4H 5. Possible community acquired pneumonia, present on admission. Active. - CURB 65 score of 2 - CXR showed "Patchy pulmonary radiopacity suspicious for aspiration/infection. " - Ceftriaxone and Azithromycin started in ED will continue for a three-day course. - Strep pneumonia and legionella negative. - Procalcitonin 0.17 initially trended down to 0.07. 6. Acute COPD exacerbation, present on admission. Active. - One dose of Solu-Medrol 125mg in ED. - Prednisone 40 mg daily. - Supplemental oxygen as needed to maintain oxygen saturation of 88-92%. - DuoNebs Q4H - Fluticason/Salmeterol BID 7. Hyperkalemia, present on admission. Resolved. - No EKG changes. - Potassium normalized this morning. 8. QT prolongation, present on admission. Active. - Monitoring on telemetry. - Avoid QT prolongation medications. 9. Diabetes Mellitus Type 2, present on admission. - Metformin and Glipizide held - on low dose correctional scale insulin protocol - Hemoglobin A1c 7.2. 10. Severe protein malnutrition, present on admission. Active. - Nutrition consulted. - Poor oral intake. - Supplements provided. - Acetaminophen as needed for mild pain/fever/headache - Bowel regimen as needed - Antiemetic as needed Disposition: Patient to discharge in 2-3 days pending respiratory improvement and rate control. Further discussion about prognosis and newly diagnosed systolic heart failure with family present. Likely discharge home possibly with home health. Pain Evaluation: Adequate Pain Control GI Prophylaxis: Not indicated VTE Prophylaxis: Sub-Q Heparin (Unfractionated) VTE Mechanical Devices: Intermittant Pneumatic CD Resuscitation Status: CPR: Attempt Resuscitation Attending Statement The patient was seen and examined together with Dr. Mcpherson on 03/20/2016 and I agree with the history, exam and plan as outlined in the note above. . ADAIR MCPHERSON DO Mar 20, 2016 07:56 Preston Moser MD Mar 22, 2016 15:02
[2016-03-20] MEDS: 0.9% Sodium Chloride 1,000 ML IV SCH ×2 (13:30→21:35)
--- NOTE | 2016-03-20 13:51 | NUR ---
Social Work: Initial Assessment D: Per EMR review, pt is an 85 year old male admitted for difficulty breathing. Pt is Medicare with no supplement; pt has no LTC insurance but has VA Benefits. WALL COVERING CONTRACTOR requested [employer] contact [place] to determine pt's VA service connection- pt may benefit from using VA benefit (if available) verus Medicare due to lack of supplement. PCP is through the [facility]. NOK is Sinai Butt, dtr, and Mis Butt, . Readmit score is moderate, 4/8. WALL COVERING CONTRACTOR met with pt at bedside to discuss dcp. Sw role explained; see initial assessment. Pt lives at home in [place] with his spouse. He uses no DME other than home 02 supplied through [employer] (3L). Pt continues to drive. Pt has never had HH or skilled rehab. Pt has been on bedrest during admission. Per MD notes, she anticipates pt to likely be able to go home with possible home health. HH Choice list provided to pt- he has no preference for [facility]. F2F placed in folder for MD signature if pt's clinical course supports HH. A: [place] who [place] P: Evolving; WALL COVERING CONTRACTOR to continue to follow. Anticipate pt to discharge home possibly with home health pending clinical course; if this need is identified WALL COVERING CONTRACTOR to provide referral based on vendor calendar. CARLEE Barraza Addendum: 03/20/16 at 1359 by JANES BOOTHE SS Amended: Links added.
--- NOTE | 2016-03-20 14:56 | NUR ---
Evaluation completed. Modified barium swallow study scheduled for 03/21/16 at 0930. Please go to "Notes" then click on "Assessments and Notes" (bottom left corner of screen). Then select appropriate discipline tab on top of screen.
--- NOTE | 2016-03-20 14:58 | NUR ---
Spoke with Jennyfer in patient access and the [facility] in [place], patient is non service connected but holds MCR A and B. Updated VEGETABLE TRIMMER
--- NOTE | 2016-03-20 15:11 | PCM.CHPCAR ---
Consult Subjective Date of service Mar 20, 2016 Date of admit Mar 18, 2016 at 20:28 Provider Requesting Consult Requesting Provider: ADAIR MCPHERSON DO Primary Care Physician [facility] SOB History of Present Illness This is an unfortunate 85-year-old male with history of end-stage COPD with diabetes mellitus type II, and hypercholesteremia. He has a OR patient sees his primary care physician across the street at the OR medical clinic. Does not seen a specialist at the [facility]. The patient came in with shortness of breath which was attributed to COPD exacerbation. The patient was found to have metabolic alkalosis most likely due to compensation a chronic CO2 state. Patient was treated with community acquired pneumonia. Chest x-ray showed findings suspicious for aspiration/infection. Patient was also treated with typical treatment for acute COPD exacerbation. The patient had an echo, done because of shortness of breath was found to have moderate to severely reduced LV systolic function. I have been asked to see the patient because of abnormal echocardiogram. The patient denies any orthopnea or PND over the past few weeks. He denies any weight gain. He has actually lost some weight. The patient states that his breathing has improved since starting his treatment for pneumonia/COPD exacerbation. He is currently receiving some albuterol. His EKGs have shown multifocal atrial tachycardia. His troponins have been negative. His echocardiogram shows normal RV systolic function and no evidence of valvular pathology. Compared to his previous study of 2006 the rhythm has changed in the LV function is reduced. Patient states he has been coughing up more phlegm than usual, feeling feverish with chills for 2 days prior to hospitalization. Associated symptoms include one day of diarrhea, which has now resolved. Review of Systems Review of Systems 11 point ROS reviewed and negative otherwise noted on HPI. PMH Past Medical History Stage 4, COPD on 3L of oxygen at home DM2 Hypercholesteremia Past Surgical History Bowel obstruction Appendectomy Bedside Blood Glucose: 182 Scheduled Budesonide/Formoterol 160-4.5 mcg Inh (Symbicort 160-4.5 mcg Inh) 120 Puff Inhaler 1 PUFF INHALATION BID (Reported) Glipizide (Glipizide) 5 Mg Tablet 2.5 MG PO BID (Reported) Metformin (Glucophage) 1,000 Mg Tablet 1,000 MG PO BID (Reported) Simvastatin (Simvastatin) 20 Mg Tablet 10 MG PO HS (Reported) Discontinued Medications Albuterol Sulfate (Proventil HFA Inhaler) 6.7 Gm Hfa.aer.ad 1 PUFF INH prn PRN PRN For Wheezing (Reported) Simvastatin (Simvastatin) 10 Mg Tablet 10 MG PO HS (Reported) Current Inpatient Medications Current Medications Albuterol 2.5 mg Q4 NEB; Start 03/18/16 at 20:30; Status Cancel Albuterol/ Ipratropium 3 ml 3 ml Q4 NEB Last administered on 03/20/16 11:24; Admin Dose 3 ML; Start 03/18/16 at 20:30 Azithromycin 500 mg/Dextrose/Water 250 ml @ 250 mls/hr Q24H IV Last administered on 03/19/16 19:13; Admin Dose 250 MLS/HR; Start 03/19/16 at 19:00 ; Stop 03/20/16 at 13:00; Status DC Sodium Chloride 1,000 ml @ 100 mls/hr Q10H IV Last administered on 03/20/16 13 :30; Admin Dose 100 MLS/HR; Start 03/18/16 at 19:35 Al Hydrox/Mg Hydrox/Simethicone 30 ml Q6H PRN PO; Start 03/18/16 at 19:35 Senna 17.2 mg BID PRN PO; Start 03/18/16 at 19:35 Polyethylene Glycol 17 gm 17 gm DAILY PRN PO; Start 03/18/16 at 19:35 Ceftriaxone Sodium/Dextrose/ Water 50 ml @ 100 mls/hr Q24H IV Last administered on 03/19/16 17:42; Admin Dose 100 MLS/HR; Start 03/19/16 at 18:00 Albuterol 2.5 mg Q4 NEB; Start 03/19/16 at 00:30; Stop 03/19/16 at 00:30; Status DC Insulin Human Lispro per protocol [facility] SUBQ Last administered on 03/20/16 12:25 ; Admin Dose 1 UNIT; Start 03/18/16 at 22:00 Heparin Sodium (Porcine) 5,000 unit Q8 SUBQ Last administered on 03/20/16 08:33 ; Admin Dose 5,000 UNIT; Start 03/19/16 at 00:30 Salmeterol Xinafoate/ Fluticasone 1 puff BID INHALATION Last administered on 08:32; Admin Dose 1 PUFF; Start 03/19/16 at 08:30 Atorvastatin Calcium 5 mg HS PO Last administered on 03/19/16 20:20; Admin Dose 5 MG; Start 03/18/16 at 21:00 Albuterol 2.5 mg Q4H PRN NEB; Start 03/19/16 at 00:30 Prednisone 40 mg DAILY PO Last administered on 03/20/16 08:32; Admin Dose 40 MG ; Start 03/19/16 at 08:30 Oseltamivir Phosphate 75 mg BID PO Last administered on 03/20/16 08:32; Admin Dose 75 MG; Start 03/19/16 at 09:30; Stop 03/23/16 at 20:31 Diltiazem HCl 120 mg 120 mg BID PO Last administered on 03/19/16 13:51; Admin Dose 120 MG; Start 03/19/16 at 13:40; Stop 03/19/16 at 19:10; Status DC Diltiazem HCl/ Sodium Chloride/ Miscellaneous 125 ml @ 5 mls/hr Q24H IV Last administered on 03/19/16 19:37; Admin Dose 5 MLS/HR; Start 03/19/16 at 19:10 Lisinopril 2.5 mg DAILY PO Last administered on 03/20/16 13:26; Admin Dose 2.5 MG; Start 03/20/16 at 11:05 Aspirin 81 mg DAILY PO Last administered on 03/20/16 12:24; Admin Dose 81 MG; Start 03/20/16 at 11:05 Metoprolol Succinate 12.5 mg DAILY PO; Start 03/21/16 at 08:30 Azithromycin 500 mg DAILY PO; Start 03/21/16 at 08:30 Allergies: Coded Allergies: No Known Allergies (Verified , 03/18/16) Family History Family History Patient denies any family history of premature coronary disease. Denies any premature heart failure as well. Social History Hx Alcohol Use: NoHx Substance Use: NoHx Tobacco Use: Yes (quit 30 years ago) Smoking Status: Former Smoker Exam Vital Signs Vital Sign - Last Date Time Temp Pulse Resp B/P Pulse Ox O2 Delivery O2 Flow Rate FiO2 03/20/16 12:30 36.5 81 20 126/66 93 Nasal Cannula 3.00 32 Intake and Output 03/19/16 03/19/16 03/20/16 Cumulative From/Thru 15:00 23:00 07:00 03/18/16 15:51 - 03/20/16 04:45 Intake Total 200 ml 120 ml 1097 ml Output Total 350 ml 200 ml 600 ml Balance -150 ml -80 ml 497 ml Intake Oral 200 ml 120 ml 440 ml IV Total 657 ml Output Urine Total 350 ml 200 ml 600 ml # Bowel Movements 0 0 Objective GEN: Elderly cachectic frail appearing gentleman in moderate respiratory distress, alert and oriented HEENT: NC/AT, EOMI, PERRL, sclera anicteric, dry mucous membranes Neck: Supple with full ROM CV: Tachycardia with irregular rhythm, soft murmur appreciated, peripheral pulses normal, distant heart sounds LUNGS: Diffused rhonchi, tight sounding chest, poor inspiratory effort, using chest and abdomen to breath ABD: Scaphoid, soft, non-tender, no organomegaly, normal active bowel tones Skin: poor skin turgor, pale, no rash EXT: no edema, cyanosis Lab and Diagnostics Result Diagram: 03/20/16 0300 03/20/16 0300 X-Rays, CTs and MRIs Date of Service: 03/18/16 1711 PROCEDURE: X-RAY CHEST ONE VIEW, PORTABLE ([id number]) INDICATIONS: sOB TECHNIQUE: One view of the chest was acquired. COMPARISON: None. FINDINGS: Surgical changes and devices: None. Lungs and pleura: Patchy opacities are present bilaterally most confluent at the left lung base. No pleural effusion or pneumothorax. The lung volumes are large and the diaphragms are flattened suggesting emphysema. Mediastinum: Mediastinal contours appear normal. Heart size is normal. The aortic arch is calcified. Bones and chest wall: No suspicious bony lesions. Overlying soft tissues appear unremarkable. IMPRESSION: Patchy pulmonary radiopacity suspicious for aspiration/infection. Short interval followup is recommended to ensure resolution of this finding and exclude underlying pulmonary pathology. Additional Diagnostics: Echocardiogram Report Name: JESSICA HELLER LStudy Date: 03/19/2016 Height: 71 in Hospital Exam Location: [facility] Weight: 120 lb Gender: Male BSA: 1.7 m2 : 1930 Age: 85 yrs BP: 125/68 mmHg Reason For Study: AFIB Ordering Physician: Performed By: Denys Millan Referring Physician: YOLI Interpretation Summary 1. Normal left ventricular size, wall thickness with globally reduced LV systolic function and an estimated EF of 35% 2. Normal right ventricular size and systolic function 3. No evidence for significant valvular pathology Compared to the previous study of 2006 (images reviewed), the rhythm has changed and the LV function appears reduced. Procedure: A two-dimensional transthoracic echocardiogram with color flow and Doppler was performed. The study quality was technically difficult. Comparison is made with the echocardiogram of 12/21/06. A contrast injection of Definity was performed to improve assessment of LV function. Rhythm is atrial fib versus sinus rhythm with frequent PACs. Left Ventricle: The left ventricle is normal in size. There is normal left ventricular wall thickness. Left ventricular ejection fraction is estimated to be 35%. Right Ventricle: The right ventricle is normal in size and function. Atria: Both atria are normal in size. No color doppler evidence for an ASD. Mitral Valve: The leaflets have mild sclerotic changes. There is trace mitral regurgitation. Aortic Valve: The aortic valve is not well visualized. In the images obtained, valve appears to open well. There is no hemodynamically significant valvular aortic stenosis. No aortic regurgitation is present. Tricuspid Valve: The tricuspid valve leaflets are thin and pliable. There is trace tricuspid regurgitation. Pulmonary artery pressures cannot be estimated because of the lack of a measurable TR jet velocity. Pulmonic Valve: The pulmonic valve is not well visualized. There is trace pulmonic regurgitation. Great Vessels: The aortic root is normal size. The ascending aorta could not be visualized. The IVC is of normal diameter and collapses greater than 50% with a sniff. This suggests a low right atrial pressure of 3 mm Hg. Pericardium/ Pleura There is no pericardial effusion. There is no pleural effusion. Assessment & Plan Problems: (1) Acute systolic (congestive) heart failure Plan: Patient has significantly reduced LV systolic function. He was not on any medications prior to hospitalizations for heart telemetry. He has been started on low-dose metoprolol and lisinopril which I certainly think are appropriate. He does not appear to be volume overloaded. We discussed about his current cardiac condition in the setting of his significant COPD. Etiology for his new-onset heart failure could be related to tachycardia-induced but certainly has risk factors for coronary artery disease. However given his fragile state secondary to severe COPD, I will probably defer cardiac catheterization at this time. Continue with titrating his beta blockers and Delano inhibitors for now. Diuretic therapy can be use as needed but he does not appear to be volume overloaded. The patient will need to establish with a government guard as an outpatient either with the [facility] or with me across the street. Hopefully with optimizing his heart failure medical therapy his EF can improve. Currently he has no indication for AICD since he has not been on optimal medical therapy but given his end-stage COPD, I am not terribly sure that this would be a good option. Certainly we can discuss more about this as an outpatient. Status: Acute ICD Code: I50.21 (2) COPD exacerbation Plan: His primary limiting factor for quality of life will be his end-stage COPD. He appears be improving since admission. This is also the primary cause of his shortness of breath for this admission. Status: Resolved ICD Code: J44.1 (3) Multifocal atrial tachycardia Plan: Patient was started on diltiazem appropriately prior to echocardiogram results. However given his significant LV systolic dysfunction, I have taken the liberty of stopping his diltiazem infusion and increasing his metoprolol succinate. Status: Acute ICD Code: I47.1 Pain Evaluation: Adequate Pain Control VTE Prophylaxis: Sub-Q Heparin (Unfractionated) VTE Mechanical Devices: Intermittant Pneumatic CD Resuscitation Status: CPR: Attempt Resuscitation Time spent 80 minutes Rolo Retana MD Mar 20, 2016 15:11
--- NOTE | 2016-03-20 15:47 | NUR ---
P: Alteration in Respiratory status I: Pt on 3L/NC with sats stable. Decreased breath sounds bilaterally at the bases. Lots of upper congestion and coughing up white thick sputum, sample sent to lab. Speech therapy here and pt diet changed. NS infusing 100cc/hr. Cardizem gtt dc'd. Moves self. voiding 200cc at a time per urinal. Post void bladder scan done with 175 cc. Notified. E: Stable S: Alert and Oriented. Uses call light appropriately. Frequent rounding.
[2016-03-20] MEDS: MeTOProlol XL 25 mg ER24 Tablet PO SCH (16:23)
--- NOTE | 2016-03-20 16:56 | PCM.CONPAL ---
Date of Service Mar 20, 2016 Date of Hospital Admission: Mar 18, 2016 at 20:28 Date of Palliative Consult: Mar 20, 2016 Requesting Provider: ADAIR MCPHERSON DO Reason Palliative Care Consult: Goals of Care Discussion Hospital Unit @time of consult: Progressive Care Palliative Care Recommendation Summary of palliative recommendations: -Symptom management (Pain/other) Dyspnea probably primarily his lung disease. Would be helpful to know any recent PFTs. Cannot exclude component of CHF based on recent echo. 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 He has enough dysphasia that it may be only decreased by mouth intake but I believe malignancy needs to be excluded Strong family history for colon cancer-we will defer to hospital team Restlessness at night insomnia-consider starting low dose mirtazapine caution with his severe lung disease and evidence for CO2 retention -DPOA/Advanced Directives/POLST-he identifies daughter Sinai Rushing as first DPOAHC, second his . CODE STATUS-at this time he would like to remain a full code. He recognizes that his if he continues to weaken lose weight and have this degree of dyspnea that this may need to be changed. POLST form reviewed not completed at this time -Family/emotional support-extensive -Spiritual support-he is not interested in pursuing at this time Patient Goals: 1. Patient wants to be told the truth about his/her illness, even if it is unpleasant. 2. Patient would like to be told prognosis when it can be predicted, to better guide treatment decisions. 3. Patient would choose quality of life over quantity of life, and defines quality as [ ]. 4. Patient would request that comfort care take priority over cognitive/mental confusion. Additional Medical Diagnoses with primary management by Hospitalist team include : Dysphasia Weight loss Diffuse pneumonia Diabetes type II Dilated cardiomyopathy with possible CHF.-- Need to address metformin in the setting of CHF Has seen Dr. Wikc as PCP but due to insurance is now followed through the [place] [facility] Problems: (1) Acute systolic (congestive) heart failure Assessment & Plan: Patient has significantly reduced LV systolic function. He was not on any medications prior to hospitalizations for heart telemetry. He has been started on low-dose metoprolol and lisinopril which I certainly think are appropriate. He does not appear to be volume overloaded. We discussed about his current cardiac condition in the setting of his significant COPD. Etiology for his new-onset heart failure could be related to tachycardia- induced but certainly has risk factors for coronary artery disease. However given his fragile state secondary to severe COPD, I will probably defer cardiac catheterization at this time. Continue with titrating his beta blockers and Delano inhibitors for now. Diuretic therapy can be use as needed but he does not appear to be volume overloaded. The patient will need to establish with a marine engineering teacher as an outpatient either with the [facility] or with me across the street. Hopefully with optimizing his heart failure medical therapy his EF can improve. Currently he has no indication for AICD since he has not been on optimal medical therapy but given his end-stage COPD, I am not terribly sure that this would be a good option. Certainly we can discuss more about this as an outpatient. Status: Acute ICD Code: I50.21 (2) COPD exacerbation Assessment & Plan: His primary limiting factor for quality of life will be his end-stage COPD. He appears be improving since admission. This is also the primary cause of his shortness of breath for this admission. Status: Resolved ICD Code: J44.1 (3) Multifocal atrial tachycardia Assessment & Plan: Patient was started on diltiazem appropriately prior to echocardiogram results. However given his significant LV systolic dysfunction, I have taken the liberty of stopping his diltiazem infusion and increasing his metoprolol succinate. Status: Acute ICD Code: I47.1 End of Life Preferences Full code Goals of Care Improved dyspnea and exertional tolerance His goal is to go home with supportive his family. He identifies no unfinished business Disposition Home when medically stable Resuscitation Status Resuscitation Status: CPR: Attempt Resuscitation POLST Updates/Changes Previous POLST?: No . Pain: Mild Symptom management: Dyspnea Pt History History of Present Illness 85-year-old gentleman under the care of [place] clinic with diagnosis of severe COPD on chronic O2 usually at 3 L recently increasing due to increasing shortness of breath. He has had increased symptoms over the past 8-10 days with increased cough shortness of breath. He was evaluated through the emergency room noting patchy infiltrates on chest x-ray and his initial blood gases pH 7.2 PCO2 of 83 PO2 of 60. Follow-up blood gases 7.41 PCO2 of 48.7 and a PO2 of 65.8 on 3 L. He denies known heart disease and denies exertional chest discomfort but does have baseline GOODAMN. He has a smoking history of at least 40 pack years discontinued in 1986. Echocardiogram done during this admission noted global hypokinesis with an EF of 35% but normal right-sided pressures. He has no history of alcohol overuse drinks socially but stopped drinking altogether approximately 2 years ago. He otherwise has a diagnosis of type II diabetes. 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 [facility] with follow-up possibly in the last 5 years and was told he was okay. He has had anorexia for approximately 6 months has lost about 40 pounds has dysphagia that he identifies particularly with solid foods such as bread so he has been drinking 3-4 Ensure per day in conjunction with small amounts he has been eating. Despite this he has continued to lose weight. He believes he had a colonoscopy about 10 years ago and said it was negative. He is a family history of colon cancer- mother of colon cancer in her 60s, his son of colon cancer as well as tracheal cancer mid 50s. He had one brother who had pneumonectomy for lung CA - smoker. Patient has noted no change in bowel movements and no blood. He did have 1 day of diarrhea but that completely resolved. He defines his main limiting factor being dyspnea which he recognizes has progressed over the past year He is lives with his . Their 2 daughters and their family also live on their farm outside of [place]. FMHX as above -- still 1 bro alive with COPD and 1 sister- health unknown, 1 sister of pneumonia, 1 bro of lung CA Past Medical History Significant PMH Noted: Severe COPD O2 dependent, has rarely used steroids Diabetes2 Hyperlipidemia History of appendectomy and SBO Right bundle branch block Long QT interval This hospitalization MAT and global hypokinesis EF 35% No known allergies Social History Occupation: duty, [employer] Social Support: Very supportive extended family Living Situation: Lives with his Spiritual Support Spiritual Support Believes in God but is not associated with the worship Responsive Patient Symptoms Pain (current): Mild Tiredness/Fatigue: Moderate Nausea: Mild Depression: None Anxiety: None Anorexia: Moderate Shortness of Breath: Severe *Requires 72 Hour Followup Constipation Denies any constipation Other + Orthopnea PND with secondary insomnia Chronic cough now productive of copious amounts of phlegm negative Palliative Performance Scale PPS Patient Status: Current PPS Ambulation: Reduced PPS Activity: Unable to do any work PPS Self-Care: Full Self Care PPS Intake: Normal or reduced PPS Conscious Level: Full Performance Scale: 70% Allergy Allergies Reviewed: Yes Medications Current Medications: Current Medications Albuterol 2.5 mg Q4 NEB; Start 03/18/16 at 20:30; Status Cancel Albuterol/ Ipratropium 3 ml 3 ml Q4 NEB Last administered on 03/20/16 11:24; Admin Dose 3 ML; Start 03/18/16 at 20:30 Azithromycin 500 mg/Dextrose/Water 250 ml @ 250 mls/hr Q24H IV Last administered on 03/19/16 19:13; Admin Dose 250 MLS/HR; Start 03/19/16 at 19:00 ; Stop 03/20/16 at 13:00; Status DC Sodium Chloride 1,000 ml @ 100 mls/hr Q10H IV Last administered on 03/20/16 13 :30; Admin Dose 100 MLS/HR; Start 03/18/16 at 19:35 Al Hydrox/Mg Hydrox/Simethicone 30 ml Q6H PRN PO; Start 03/18/16 at 19:35 Senna 17.2 mg BID PRN PO; Start 03/18/16 at 19:35 Polyethylene Glycol 17 gm 17 gm DAILY PRN PO; Start 03/18/16 at 19:35 Ceftriaxone Sodium/Dextrose/ Water 50 ml @ 100 mls/hr Q24H IV Last administered on 03/19/16 17:42; Admin Dose 100 MLS/HR; Start 03/19/16 at 18:00 Albuterol 2.5 mg Q4 NEB; Start 03/19/16 at 00:30; Stop 03/19/16 at 00:30; Status DC Insulin Human Lispro per protocol [facility] SUBQ Last administered on 03/20/16 12:25 ; Admin Dose 1 UNIT; Start 03/18/16 at 22:00 Heparin Sodium (Porcine) 5,000 unit Q8 SUBQ Last administered on 03/20/16 08:33 ; Admin Dose 5,000 UNIT; Start 03/19/16 at 00:30 Salmeterol Xinafoate/ Fluticasone 1 puff BID INHALATION Last administered on 08:32; Admin Dose 1 PUFF; Start 03/19/16 at 08:30 Atorvastatin Calcium 5 mg HS PO Last administered on 03/19/16 20:20; Admin Dose 5 MG; Start 03/18/16 at 21:00 Albuterol 2.5 mg Q4H PRN NEB; Start 03/19/16 at 00:30 Prednisone 40 mg DAILY PO Last administered on 03/20/16 08:32; Admin Dose 40 MG ; Start 03/19/16 at 08:30 Oseltamivir Phosphate 75 mg BID PO Last administered on 03/20/16 08:32; Admin Dose 75 MG; Start 03/19/16 at 09:30; Stop 03/23/16 at 20:31 Diltiazem HCl 120 mg 120 mg BID PO Last administered on 03/19/16 13:51; Admin Dose 120 MG; Start 03/19/16 at 13:40; Stop 03/19/16 at 19:10; Status DC Diltiazem HCl/ Sodium Chloride/ Miscellaneous 125 ml @ 5 mls/hr Q24H IV Last administered on 03/19/16 19:37; Admin Dose 5 MLS/HR; Start 03/19/16 at 19:10; Stop 03/20/16 at 15:09; Status DC Lisinopril 2.5 mg DAILY PO Last administered on 03/20/16 13:26; Admin Dose 2.5 MG; Start 03/20/16 at 11:05 Aspirin 81 mg DAILY PO Last administered on 03/20/16 12:24; Admin Dose 81 MG; Start 03/20/16 at 11:05 Metoprolol Succinate 12.5 mg DAILY PO; Start 03/21/16 at 08:30; Stop 03/21/16 at 08:30; Status DC Azithromycin 500 mg DAILY PO; Start 03/21/16 at 08:30 Metoprolol Succinate 25 mg DAILY PO; Start 03/20/16 at 15:10 Scheduled Budesonide/Formoterol 160-4.5 mcg Inh (Symbicort 160-4.5 mcg Inh) 120 Puff Inhaler 1 PUFF INHALATION BID Glipizide (Glipizide) 5 Mg Tablet 2.5 MG PO BID Metformin (Glucophage) 1,000 Mg Tablet 1,000 MG PO BID Simvastatin (Simvastatin) 20 Mg Tablet 10 MG PO HS Objective Findings Exam Vital Sign - Last Date Time Temp Pulse Resp B/P Pulse Ox O2 Delivery O2 Flow Rate FiO2 03/20/16 12:30 36.5 81 20 126/66 93 Nasal Cannula 3.00 32 Intake and Output 03/19/16 03/19/16 03/20/16 Cumulative From/Thru 15:00 23:00 07:00 03/18/16 15:51 - 03/20/16 04:45 Intake Total 200 ml 120 ml 1097 ml Output Total 350 ml 200 ml 600 ml Balance -150 ml -80 ml 497 ml Intake Oral 200 ml 120 ml 440 ml IV Total 657 ml Output Urine Total 350 ml 200 ml 600 ml # Bowel Movements 0 0 General: Alert/Oriented x3 HEENT: PERRLA, EOMI, Scleral Anicteric Heart: Regular Rate/Rhythm, Tachycardia Lungs: Diminished Abdomen: Soft, Non Tender Neuro: Cranial Nerve 3-12 Intact, Other (mentation normal appropriate, definitely decisional, warm at conversation) Extremities: No Edema Addtional Information No palpable lymphadenopathy neck supraclavicular axillary or inguinal No organomegaly or distention thin to nearly cachectic Lab/Diagnostics Lab and Imaging results reviewed in detail in EMR. CBC normal on admit developing only mild anemia BMP WNL Patient/Family Conference Members Present Family Members Present Patient Medical Team Members Present? Neva Stack M.D. Discussion/Goals of Care Discussion FAMILY UNDERSTANDING OF DISEASE: He recognizes progressive decline over the past year but particularly in the past 6 months. No evaluation to date for possible cause of weight loss He would be interested in evaluation for diagnosis. He states he would be comfortable knowing why he is losing weight. He recognizes there is little to be done about his lung disease. He defines he has had a very full life and he does not define any unfinished business DISEASE PROGRESSION/EVIDENCE OF DECLINE: SYMPTOM BURDEN: GOALS: HOPES/WORRIES: FAMILY WISHES/VALUES: Do you want to be told truth about his illness, even if unpleasant? Does family want to know prognosis when it can be predicted, to better guide treatment decisions? What is quality of life for the patient: to be able to interact with their loved ones and friends, to travel, not to be bedbound, to be independent in taking care of themselves: Would patient choose quality of life over quantity of life? Would comfort care be more important than being awake and alert? If patient is no longer alert and aware because of their illness, would you choose comfort for them? Palliative Care counselled: Time spent Total time 60 minutes; >50% face to face with patient and/or family, providing counselling regarding plans and recommendations, and in care coordination with his/her medical teams. I also spent an additional [ ] minutes counseling for advanced care planning with the patient/the patients family/the surrogate decision maker. Mirella Stack MD Mar 20, 2016 16:56
[2016-03-20] MEDS: cefTRIAXone Inj 2,000 MG in Dextrose 5% Minibag Plus 50 ML IV SCH (17:13)
--- NOTE | 2016-03-20 23:11 | NUR ---
Pulse At 2100, pt's pulse fluctuated from 90-140 and back down in a 2 minute timeline. Pt asymptomatic. Provider notified. Provider stated that BP is not high enough to give another dose of metoprolol but to monitor BP and if a pulse of 140 continues for 10, then creative writer to notify provider. Answering Service Telephone Operator will continue to monitor.
[2016-03-21] VITALS (11 sets, daily range): BP systolic 116–138; BP diastolic 69–83; PULSE 74–97; RESP 18–24; O2SAT 92–96
[2016-03-21] MEDS: Heparin 5,000 Unit/mL Inj SUBQ SCH ×3 (00:30→17:19)
[2016-03-21] MEDS: Albuterol-Ipratropium 3 mL Inhalation Solution NEB SCH ×3 (01:12→09:05)
[2016-03-21 03:23] LABS: BASOPHILS % (AUTO) 0.2 % (0-3); EOSINOPHILS % (AUTO) 0.1 % (0-5); MONOCYTES % (AUTO) 9.9 % (4-12); Mean Corpuscular Hemoglobin 30.2 pg (27.0-35.0); Mean Corpuscular Volume 97.3 fL (81-100); NEUTROPHILS % (AUTO) 74.9 % (40-74); Platelet Count 263 bil/L (150-400)
[2016-03-21 03:58] LABS: Magnesium 1.9 mg/dL (1.6-2.6)
[2016-03-21] MEDS: Insulin LISPRO 300 Unit/3 mL Inj SUBQ SCH ×4 (08:00→22:50)
[2016-03-21] MEDS ORDERED: MeTOProlol XL 25 mg ER24 Tablet PO SCH (08:30)
--- NOTE | 2016-03-21 09:05 | PCM.PALLBR ---
Palliative Care Recommendation Summary of palliative recommendations: -Symptom management (Pain/other) Dyspnea probably primarily his lung disease. Would be helpful to know any recent PFTs. Cannot exclude component of CHF based on recent echo. 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 He has enough dysphasia that it may be only decreased by mouth intake but I believe malignancy needs to be excluded Strong family history for colon cancer-we will defer to hospital team Restlessness at night insomnia-consider starting low dose mirtazapine caution with his severe lung disease and evidence for CO2 retention -DPOA/Advanced Directives/POLST-he identifies daughter Sinai Rushing as first DPOAHC, second his . 1. CODE STATUS- on 03/21, Dr. Mariano spoke with pt and his daughter Sinai, who was surprised that on 03/20 he wanted to be full code. Sinai says he has always told her and family that he wants DNR/DNI. We both discussed this with Mr. Butt today, and he reverses himself and want to be DNR/DNI. Code status changed in EMR 03/21. 2. POLST form reviewed and completed, signed by patient with his daughter ( who is HCPOA) in agreement. 3. POLST states: DNR/DNI, consider antibiotics if they might be helpful on case by case basis. He would want a trial of tube feeding to see if he can get better and gain weight, IF he is not safe to swallow on his own. 4. Above counseling reviewed with [facility] Attending team during discharge rounds today. -Family/emotional support-extensive Patient Goals: 1. Patient wants to be told the truth about his/her illness, even if it is unpleasant. 2. Patient would like to be told prognosis when it can be predicted, to better guide treatment decisions. 3. He wants his code status to be DNR/DNI. He does NOT want doctors to intervene to prevent his , but wants to "go naturally and let God take over." Additional Medical Diagnoses with primary management by Hospitalist team include : Dysphasia Weight loss Diffuse pneumonia Diabetes type II Dilated cardiomyopathy with possible CHF.-- Need to address metformin in the setting of CHF Has seen Dr. Wick as PCP but due to insurance is now followed through the [place] Problems: (1) Acute systolic (congestive) heart failure Assessment & Plan: Patient has significantly reduced LV systolic function. He was not on any medications prior to hospitalizations for heart telemetry. He has been started on low-dose metoprolol and lisinopril which I certainly think are appropriate. He does not appear to be volume overloaded. We discussed about his current cardiac condition in the setting of his significant COPD. Etiology for his new-onset heart failure could be related to tachycardia- induced but certainly has risk factors for coronary artery disease. However given his fragile state secondary to severe COPD, I will probably defer cardiac catheterization at this time. Continue with titrating his beta blockers and Delano inhibitors for now. Diuretic therapy can be use as needed but he does not appear to be volume overloaded. The patient will need to establish with a decision science analyst as an outpatient either with the [facility] or with me across the street. Hopefully with optimizing his heart failure medical therapy his EF can improve. Currently he has no indication for AICD since he has not been on optimal medical therapy but given his end-stage COPD, I am not terribly sure that this would be a good option. Certainly we can discuss more about this as an outpatient. Status: Acute ICD Code: I50.21 (2) COPD exacerbation Assessment & Plan: His primary limiting factor for quality of life will be his end-stage COPD. He appears be improving since admission. This is also the primary cause of his shortness of breath for this admission. Status: Resolved ICD Code: J44.1 (3) Multifocal atrial tachycardia Assessment & Plan: Patient was started on diltiazem appropriately prior to echocardiogram results. However given his significant LV systolic dysfunction, I have taken the liberty of stopping his diltiazem infusion and increasing his metoprolol succinate. Status: Acute ICD Code: I47.1 End of Life Preferences Full code Goals of Care Improved dyspnea and exertional tolerance His goal is to go home with supportive his family. He identifies no unfinished business Disposition Home when medically stable Resuscitation Status Resuscitation Status: DNR/DNI:Do Not Resuscitate/Intubate POLST Updates/Changes Previous POLST?: Yes POLST Last Review Date: Mar 21, 2016 Antibiotics: Determine Use or Limitations Artificially Admin Nutrition: Trial Period Tube Feeding POLST Review Outcome: New Form Completed . Advanced Care Planning Address: POLST, Code status change Symptom management: Dyspnea Total time 65 minutes; >50% face to face with patient and/or family, providing counselling regarding plans and recommendations, and in care coordination with his/her medical teams. I also spent an additional 35 minutes counseling for advanced care planning with the patient/the patients family/the surrogate decision maker. Palliative Brief Note Date of Service Mar 21, 2016 . Patient Identification: 85-year-old gentleman under the care of [place] clinic with diagnosis of severe COPD on chronic O2 usually at 3 L recently increasing due to increasing shortness of breath. He has had increased symptoms over the past 8-10 days with increased cough shortness of breath. He was evaluated through the emergency room noting patchy infiltrates on chest x-ray and his initial blood gases pH 7.2 PCO2 of 83 PO2 of 60. Follow-up blood gases 7.41 PCO2 of 48.7 and a PO2 of 65.8 on 3 L. Hospital Course: Admitted and treated for influenza A and acute hypercarbic respiratory failure. Echocardiogram done during this admission noted global hypokinesis with an EF of 35% but normal right-sided pressures. government operations consultant evaluated pt as having significantly reduced LV systolic function. He was not on any medications prior to hospitalizations and was started on low- dose metoprolol and lisinopril. Etiology for his new-onset heart failure could be related to tachycardia-induced but certainly has risk factors for coronary artery disease. However given his fragile state secondary to severe COPD, cardiology recommends to defer cardiac catheterization. The recommendation is to continue with titrating his beta blockers and Delano inhibitors. Today is Hospital day 4 (03/21). Review of Systems: CV: He denies known heart disease and denies exertional chest discomfort but does have baseline GOODMAN. Resp: He identfies his main limiting factor being dyspnea which he recognizes has progressed over the past year. He is on home oxygen. He has a smoking history of at least 40 pack years discontinued in 1986. 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 He had a pulmonary evaluation through the [place] starting 20 years ago with follow- up possibly in the last 5 years and was told he was okay. ETOH: He has no history of alcohol overuse drinks socially but stopped drinking altogether approximately 2 years ago. GI: He has had anorexia for approximately 6 months has lost about 40 pounds has dysphagia that he identifies particularly with solid foods such as bread so he has been drinking 3-4 Ensure per day in conjunction with small amounts he has been eating. Despite this he has continued to lose weight. He believes he had a colonoscopy about 10 years ago and said it was negative. Patient has noted no change in bowel movements and no blood. He did have 1 day of diarrhea but that completely resolved. Family History: strong family history of colon cancer--mother of colon cancer in her 60s, his son of colon cancer as well as tracheal cancer mid 50s. He had one brother who had pneumonectomy for lung CA, 1 bro alive with COPD and 1 sister- health unknown, 1 sister of pneumonia, 1 bro of lung CA Past Medical History Significant PMH Noted: Severe COPD O2 dependent, has rarely used steroids Diabetes2 Hyperlipidemia History of appendectomy and SBO Right bundle branch block Long QT interval This hospitalization MAT and global hypokinesis EF 35% Social History Occupation: duty, [employer] Social Support: Very supportive extended family Living Situation: Lives with his . At baseline, he was independently mobile and driving. Their 2 daughters and their family also live on their farm outside of [place]. Spiritual Support Believes in God but is not associated with the christianity. 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 Allergy NKMA Subjective: Pt is alert, in bed, and inhaling a nebulizer treatment. Dtr Sinai at bedside. Pt denies SOB or pain. Says he is hungry and would like to eat. Reminded family and pt that he has a barium swallow study this morning. Discussed with them patient's new finding this hospitalization of cardiomyopathy and that it also impacts his breathing status. Explained possible mechanism of cardiomyopathy to daughter. Answered questions on what Attending team is planning for today. Exam General: Alert/Oriented x3 HEENT: PERRLA, EOMI, Scleral Anicteric Heart: Regular Rate/Rhythm, Tachycardia Lungs: Diminished, speaks in full sentences, not using accessory muscles of repiration Abdomen: Soft, Non Tender Neuro: Cranial Nerve 3-12 Intact, mentation normal, appropriate, definitely decisional, completely follows our conversation Extremities: No Edema Addtional Information No palpable lymphadenopathy neck supraclavicular axillary or inguinal No organomegaly or distention thin to nearly cachectic Lab/Diagnostics. Leah Mariano MD Mar 21, 2016 09:05
[2016-03-21] MEDS: Fluticasone-Salmererol 250-50 Inhaler INHALATION SCH ×2 (10:19→20:37)
[2016-03-21] MEDS: predniSONE 20 mg Tablet PO SCH (10:21)
[2016-03-21] MEDS: MeTOProlol XL 25 mg ER24 Tablet PO SCH ×2 (10:21→20:38)
--- NOTE | 2016-03-21 10:29 | PCM.PNMED ---
Subjective Date of Service Mar 21, 2016 Subjective Bernardo Butt is an 85 year old male with a history of stage 4 COPD and diabetes mellitus type 2 presenting to the ED via EMS complaining of SOB and cough, which worsened in the last 8-10 days. Admitted and treated for influenza A, acute hypercarbic respiratory failure, MAT, and newly diagnosed systolic heart failure. Hospital day 4. Overnight: Patient stable overnight. A few episodes of tachycardia not sustained. Today: Patient alert and oriented and currently using 3L nasal cannula. He continues to complain of weakness and fatigue. Palliative care discussed prognosis, code status, and goals of care. Patient has changed code status to DNR/DNI. Urine output minimal and appetite continues to be poor. Patient went for barium swallow today to further investigate dysphagia. He denies any chest pain, palpitations, nausea, vomiting, abdominal pain, fever, or chills. Remaining review of systems negative. Exam Vital Signs Vital Sign - Last Date Time Temp Pulse Resp B/P Pulse Ox O2 Delivery O2 Flow Rate FiO2 03/21/16 05:00 84 03/21/16 04:39 20 96 Nasal Cannula 3.00 03/21/16 03:12 36.8 138/69 03/20/16 16:30 32 Intake and Output 03/20/16 03/20/16 03/21/16 Cumulative From/Thru 15:00 23:00 07:00 03/18/16 15:51 - 03/21/16 06:15 Intake Total 1460 ml 1618 ml 4175 ml Output Total 700 ml 875 ml 2175 ml Balance 760 ml 743 ml 2000 ml Intake Oral 360 ml 470 ml 1270 ml IV Total 1100 ml 1148 ml 2905 ml Output Urine Total 700 ml 875 ml 2175 ml # Bowel Movements 0 Exam General: Elderly cachectic frail appearing gentleman, no acute distress, appropriately interactive HEENT: Temporal wasting. Hearing aids in place. Pupils equal, round, and reactive to light and accommodation. Anicteric sclerae, moist conjunctivae, and no lid lag. Mucous membranes dry. Nasal cannula in place. Neck: Supple with full range of motion. Cardiovascular: Irregular rate and rhythm with soft murmur. Pulmonary: Rhonchi present in right lower lung field. No wheezes. Normal respiratory effort with no use of accessory muscles. Abdomen: Bowel tones present. Scaphoid, soft, nontender, nondistended. No hepatosplenomegaly or masses appreciated. Extremities: Muscle wasting and no edema. Skin: Normal temperature, decreased turgor, and texture; no rash, ulcers, or subcutaneous nodules appreciated. Neurological: Cranial nerves grossly intact. Normal muscle strength, tone, and bulk. Reflexes, coordination, and sensory function within normal limits. No known gait impairment. Psychiatric: Normal mood and affect. Alert and oriented to person, place, and time. Lab and Diagnostics Result Diagram: 03/21/16 0304 03/21/16 0304 X-Rays, CTs and MRIs X-RAY CHEST ONE VIEW, PORTABLE IMPRESSION: Patchy pulmonary radiopacity suspicious for aspiration/infection. Short interval followup is recommended to ensure resolution of this finding and exclude underlying pulmonary pathology. Dictated by: Moraima Viera M.D. on 03/18/2016 at 18:05 Approved by: Moraima Viera M.D. on 03/18/2016 at 18:06 12-lead ECG ECG Interpretation: Sinus tachycardia, rate 102. Borderline RBBB. Non-specific T wave abnormalities inferiorally. No prior EKG for comparison. Time: 17:20 Interpreted by: ED physician ECG Interpretation: More tachycardic but has received multiple nebs. More movement making baseline slightly more difficult. Overall unchanged. Time: 19:48 Interpreted by: ED physician Cardiac Echo Impressions Echocardiogram Report Interpretation Summary 1. Normal left ventricular size, wall thickness with globally reduced LV systolic function and an estimated EF of 35% 2. Normal right ventricular size and systolic function 3. No evidence for significant valvular pathology Compared to the previous study of 2006 (images reviewed), the rhythm has changed and the LV function appears reduced. Reading Physician:04:44 PM Assessment & Plan Bernardo Butt is an 85 year old male with a hx of stage 4 COPD and DM2 presenting to the ED via EMS complaining of SOB and cough, which worsened in the last 8-10 days. Admitted and treated for influenza A and acute hypercarbic respiratory failure. Hospital day 4. 1. Acute systolic heart failure, present on admission. Active. - Newly diagnosed with echo 03/20 showing global hypokinesis of the left ventricle and an EF of 35%. - Aspirin 81 mg daily. - Lisinopril 2.5 mg daily. - Metoprolol succinate 25 mg BID. - Lasix 20 mg PO given. Will monitor urine output. - We will consider adding spironolactone. - Likely not an AICD candidate at this time due to age and comorbidities. - Cardiology consulted. Appreciate time and expertise. 2. Influenza A, present on admission. Active. - Oseltamivir 75 mg BID. - Treatment as above. 3. Multifocal atrial tachycardia, present on admission. Active. - Common finding in patients with COPD. - Diltiazem gtt started on 03/19 and switched to oral metoprolol succinated on . - Monitor on telemetry. 4. Acute on chronic hypercarbic respiratory failure, present on admission. Active. - Etiology secondary to influenza A and COPD. - Patient received one dose of Solu-Medrol 125mg in ED. - ABG in ED with pH 7.206, CO2 83.5, O2 60.6 HCO3 31.8. Improved this morning after BPAP. 5. Dysphagia, present on admission. Active. - Ongoing for greater than 6 months. Reason for decreased appetite. - Barium swallow results revealed significant impairment. - Nutrition consulted and placing order for tube feeds. - Plan to discharge home with tube feeds until CT can be obtained in 1 week. 6. Possible community acquired pneumonia, present on admission. Active. - CURB 65 score of 2 - CXR showed "Patchy pulmonary radiopacity suspicious for aspiration/infection. " - Ceftriaxone and Azithromycin started in ED will continue for a three-day course. - Strep pneumonia and legionella negative. - Procalcitonin 0.17 initially trended down to 0.07. 7. Acute COPD exacerbation, present on admission. Active. - One dose of Solu-Medrol 125mg in ED. - Prednisone 40 mg daily. - Supplemental oxygen as needed to maintain oxygen saturation of 88-92%. - DuoNebs Q4H - Fluticasone/Salmeterol BID 8. Hyperkalemia, present on admission. Resolved. - No EKG changes. - Potassium normalized this morning. 9. QT prolongation, present on admission. Active. - Monitoring on telemetry. - Avoid QT prolongation medications. 10. Diabetes Mellitus Type 2, present on admission. - Metformin and Glipizide held. - Low dose correctional scale insulin protocol. - Hemoglobin A1c 7.2. 11. Severe protein malnutrition, present on admission. Active. - Nutrition consulted. - Poor oral intake. - Supplements provided. - Acetaminophen as needed for mild pain/fever/headache - Bowel regimen as needed - Antiemetic as needed Disposition: Patient to discharge in 1-2 days pending respiratory improvement, rate control, and dysphagia workup. Likely discharge home possibly with home health. GI Prophylaxis: Not indicated VTE Prophylaxis: Sub-Q Heparin (Unfractionated) VTE Mechanical Devices: Intermittant Pneumatic CD Resuscitation Status: CPR: Attempt Resuscitation Attending Statement The patient was seen and examined together with Dr. Mcpherson on 03/21/2016 and I agree with the history, exam and plan as outlined in the note above. . ADAIR MCPHERSON DO Mar 21, 2016 07:53 Preston Moser MD Mar 22, 2016 15:02
--- NOTE | 2016-03-21 10:34 | DRSVH ---
PROCEDURE: X-RAY BARIUM SWALLOW WITH FOOD & VIDEOGRAPHY ([id number]) INDICATIONS: dysphagia TECHNIQUE: Examination was conducted in conjunction with speech pathology per standard protocol. In the lateral projection, filming was performed of the patient swallowing. AP projection filming may also be performed with patient swallowing. COMPARISON: None. FINDINGS: Function: The oral preparatory phase appears normal, with proper containment. The subsequent oral pr opulsive phase, pharyngeal phase, and esophageal phase of swallowing also appear normal with all prof fered substances. Moderatel premature spillage of contrast media and vallecular pooling. Silent tra cheobronchial aspiration. The attending physician was personally present in the room during the exami nation. Morphology: No cricopharyngeal bar is identified. No cervical esophageal webs. No Zenker's diverti culum. No strictures. IMPRESSION: Silent tracheobronchial aspiration. Dictated by: Sergo Lin [facility] Interpreted: Iram Egan MD on 03/21/2016 at 10:33 Transcribed by: JOSE L on 03/21/2016 at 10:33 Approved by: Iram Egan MD, PhD on 03/21/2016 at 16:51
--- NOTE | 2016-03-21 11:40 | ST BAR ---
[address] [address] SPEECH BARIUM SWALLOW STUDY PATIENT: JESSICA HELLER : 1930 MR#: [id number] ADMIT: 03/18/2016 JOB ID: [id number] DATE OF SERVICE: 03/21/2016 REFERRING PHYSICIAN: Tatyana Gonzalez DO (RES) PRIMARY CARE PHYSICIAN: [facility] START OF CARE DATE: 03/20/2016 ONSET DATE: 03/20/2016 THERAPIST: Dionne Malone MA CCC-LP JANET #: PRIMARY DIAGNOSIS: 1. Acute systolic heart failure. 2. Influenza A. 3. Acute on chronic hypercarbic respiratory failure. 4. Dysphagia. 5. Pneumonia. TREATMENT DIAGNOSIS: Dysphagia. VISITS FROM START OF CARE: One. TREATMENT RECOMMENDED: At one time a week for up to eight weeks dated from March 22, 2016 to May 19, 2016. SHORT-TERM GOALS: 1. The patient will demonstrate understanding of diet texture and liquid level modifications as demonstrated by independently following recommendations. 2. The patient will complete a laryngeal strengthening program in order to improve the strength, timing, and range of motion of his swallowing mechanism. 3. The patient and his family will participate in education sessions targeting level of dysphagia exercise program, diet level modification, and liquid modification. LONG-TERM GOAL: Least restrictive diet at time of discharge. PATIENT GOAL: Not to choke when he is eating or drinking. PLAN: 1. Diet, texture, and liquid level modification. 2. Monitoring of diet tolerance. 3. Patient and family education and laryngeal exercise program. CURRENT RELEVANT HISTORY: This is a very kind 85-year-old male with history of stage IV COPD and diabetes mellitus two who presented to [facility] complaining of increasing shortness of breath and cough. The patient was admitted and has been treated for influenza A and acute hypercarbic respiratory failure. After evaluation by palliative care physicians it was noted that the patient had reported some ongoing issues with swallowing and reported some choking and difficulty swallowing on certain textures. The current study is being completed today after the patient reported this dysphagia to palliative care and after the chest x-ray indicated a suspicion for aspiration. This study is being completed to fully assess the swallowing mechanism and to evaluate for silent aspiration, as that was suspected at time of clinical bedside swallow evaluation on March 20, 2016. MEDICAL NECESSITY: Aspiration risk. PRIOR LEVEL OF FUNCTION: The patient resides with his at home and has been eating and drinking general textures and thin liquids. PREVIOUS TREATMENT: No. RELEVANT HOSPITALIZATIONS: Unknown. FUNCTIONAL LIMITATIONS: Recurrent pneumonia and coughing and choking with meals. BASELINE TEST MEASURES: The patient was seated in the barium swallow chair and was viewed laterally. PO trials of barium in the following consistencies were given: Thin, nectar thick, pureed, dysphagia mechanical, and a barium tablet. Oral motor evaluation revealed the patient was edentulous. Generalized weakness was observed. Range of motion for lingual and labial movement was within functional limits, however speed of lingual movement was reduced per diadochokinetic rate. OBSERVATIONS: Oral phase: Labial seal was incomplete and bolus escape occurred on more than one trial. Mastication was reduced due to dentition. AP propulsion was slow. The patient demonstrated increased time need for bolus prep. Pharyngeal phase: Premature spillage: Yes. Premature spillage occurred consistently on all liquid trials to the level of the piriform sinus on thin trials and into the vallecula on nectar thick trials. Laryngeal excursion was reduced. Swallow reflex was delayed. Epiglottic transition was slow. Vallecular residue was significant and did not clear with followup swallows. Piriform sinus residue was moderate and poses a risk for aspiration. Followup swallows were not helpful to clear the vallecula or the piriform sinus of this residue. Laryngeal penetration: Yes. Penetration was silent and went to the level of the vocal folds on thin liquid trials in which aspiration did not occur. Aspiration occurred on more than one thin liquid trial when controlling for volume of sip and chin tuck strategy. Aspiration was silent and happened on more than one trial of thin liquids. Cough was weak and did not clear residue from the trachea. Esophageal phase: Could not be fully viewed due to patient positioning in the barium swallow chair. The barium tablet was administered and the patient demonstrated difficulty with movement within the oral phase of swallow with the tablet, however the tablet passed through the pharynx and proximal esophagus without difficulty or hesitation. Compensatory strategies were utilized in order to attempt to clear the vallecula of residue. These strategies were unsuccessful. Chin tuck did not decrease aspiration risk with thin liquids. Aspiration risk remains high. TEXTURE RECOMMENDATIONS: It is recommended that the patient eat a maximum dysphagia mechanical texture, meaning that dysphagia mechanical textures should be chopped almost to the level of puree. [place] thick liquids are recommended at this time due to silent aspiration of a moderate amount of thin liquid that was not cleared with a cough. EVALUATION RESULTS: This is a very pleasant 85-year-old male with a medical history significant for stage 4 COPD and diabetes mellitus 2. The patient is currently being treated for influenza A, acute hypercarbic respiratory failure, and pneumonia. The patient presented today with moderate to severe oropharyngeal dysphagia characterized by poor bolus prep, lack of bolus controls in the oral cavity resulting in significant amounts of premature spillage, slow swallow reflex, and decreased laryngeal elevation. All of these factors contributed to the patient silently aspirating thin liquids both during and after the swallow. Aspiration occurred silently and a significant amount of barium passed through the vocal folds and into the trachea. The patient's cough was not strong enough to clear the barium from the trachea. Risk for aspiration was not decreased with the use of compensatory strategies and due to weakness of the swallowing mechanism any diet advancement is not recommended at this time. It is recommended the patient complete laryngeal exercises in order to maintain current swallowing function and to provide some education to the patient and his family regarding aspiration risk, silent aspiration, and current diet texture recommendations. Thank you very much for this interesting consult. CC: [facility] ROGER
[2016-03-21] MEDS: Polyethylene Glycol (PEG) 17 Gm Powder PO SCH (12:00)
--- NOTE | 2016-03-21 13:36 | NUR ---
Palliative care note D/A: Palliative care referral kindly received on 03/20/[address] Flynn. Pt is an 85 yom, resident of [place] where he lives with his spouse. 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 Pt is noted to have both VA and Medicare but does not have a supplement. Pt is noted to have VA coverage that is non service connected and to have [employer] both A and B. Pt spouse is Mis who can be reached at [phone]. Pt dtr is Magda and she can be reached at [phone]. Pt has DPOA documentation and in it he specifies that he wishes dtr Magda to be his primary decision maker and his spouse Mis to be her back up. P: Palliative care to follow. Gemma TRISTAN, CCM
--- NOTE | 2016-03-21 14:44 | NUR ---
NUTRITION FOLLOW-UP ASSESS: Pt is an 85 yo male admitted w/ acute on chronic respiratory failure and community acquired pneumonia. Diet downgraded to dysphagia mechanical w/ nectar thick liquids per ST. MBS done today showed severe swallow impairment, max dysphagia mechanical (almost pureed textures) diet being recommended. Verbal order received to begin tube feeding via NG. Pt will likely d/c home and will have a CT of the abdomen one week from now, after which the decision for PEG tube will be made. Pt without BM during admission, discussed during case management meeting - bowel regimen to be started. Pt may also opt for a more comfort centered approach. Palliative care is following. PMHX: Stage 4 COPD, DM Type II, Hypercholesterolemia, Bowel Obstruction Surgery, Appendectomy LABS: Reviewed. Cr 0.51, Glu 198, Ca 8.3, Albumin 2.7 MEDS: Reviewed. Prednisone GI: No BM reported yet - bowel regimen starting today DIET: Max dysphagia mechanical w/ thickened liquids, PO 25-50% DIET OFFICE MACHINE TECHNICIAN: Bites of foods and Ensure 3x/d NUTRITION FOCUSED PHYSICAL ASSESSMENT GI: No BM reported yet. SKIN: Manjinder 17 - redness noted on posterior buttock OVERALL APPEARANCE: Visible loss of muscle throughout body. Prominent clavicle and squaring of shoulders. Pt reports loss of muscle in legs. ANTHROPOMETRICS: Current Wt: 57.2 kg BMI: 17.6 kg/m2 Admit Wt: 56.8 kg IBW: 78 kg UBW: 61.4 kg (11.2% wt. loss in two years) EST. NEEDS: Underweight, COPD Kcals: 4599-8843 kcal/day (30-35 kcal/kg BW) Pro: 94-115 g/day (1.2-1.5 g/kg IBW) NUTRITION DIAGNOSIS: 1.) Moderate protein calorie malnutrition related to chronic illnesses as evidenced by reported PO intake of less than 75% of estimated needs in last 7 days to one month, severe loss of LBM and subcutaneous fat, reported unintentional wt loss of 6.9 kg (11.2% wt loss) in the last two years, and BMI of 16.8 kg/m2.-PERSISTS 2.) Increased nutrient needs related to chronic illness as evidenced by COPD.-PERSISTS NUTRITION INTERVENTION: 1.) Recommend initiating TF w/ Glucerna 1.5 @ 15 ml/hr x24 hrs to monitor for refeeding. 2.) Once tolerance established, recommend increasing 10 ml q 4 hrs to goal rate of 45 ml/hr + 50 ml H2O q 4 hrs to provide 1552 kcal/d, 85 g/d protein, 1085 ml/d H2O, meeting 95% of calorie needs, 90% of protein needs, and ~50% of fluid needs. 3.) Adjust TF rate based on pts PO intake 4.) Provided High Calorie, High Protein recipe book and discussed strategies for increasing calorie and protein intake. (03/19) MONITOR / EVAL: PO intake, wt, GI, labs, POC. Will continue to monitor per high nutritional risk guidelines.
--- NOTE | 2016-03-21 15:32 | NUR ---
Social Work: Continued Discharge Planning D/A: Pt discussed with MD. Pt and family are opting not to have NG tube placed for nutrition and would like to instead switch to comfort measures. They are requesting a hospice informational visit tomorrow. t/c to [facility] They are reviewing availability for tomorrow and will call TAIL [facility]ER with final time. P: TAIL SAWYER to await [facility] communication re: info visit for tomorrow and will update pt's daughter Sinai ([phone]). CARLEE Barraza
[2016-03-21] MEDS: cefTRIAXone Inj 2,000 MG in Dextrose 5% Minibag Plus 50 ML IV SCH (17:20)
--- NOTE | 2016-03-21 18:28 | NUR ---
Hospice/Anxiety Pt and family discussed pt going to comfort care and hospice. Palliative care notified, social work notified, hospitalist notified. Pt to have consult tomorrow 03/22 at 0900 with hospice. Pt voiced anxiety and requested medication from RN to help to relax him and help him sleep this PM. This RN discussed with pt his options to help him with his anxiety. Pt appears to be calm and relaxed at this time. has placed orders for PO Seroquel 12.5mg at 2100.
[2016-03-22] MEDS: Heparin 5,000 Unit/mL Inj SUBQ SCH ×4 (00:51→23:29)
[2016-03-22 03:15] VITALS: BP 118/68; PULSE 62; RESP 20; O2SAT 94
[2016-03-22 04:04] LABS: BASOPHILS % (AUTO) 0.2 % (0-3); EOSINOPHILS % (AUTO) 0 % (0-5); Mean Corpuscular Hemoglobin 29.8 pg (27.0-35.0); Mean Corpuscular Volume 96.3 fL (81-100); NEUTROPHILS % (AUTO) 76.8 % (40-74); Platelet Count 288 bil/L (150-400)
[2016-03-22 04:21] LABS: Magnesium 1.8 mg/dL (1.6-2.6)
[2016-03-22] MEDS: Insulin LISPRO 300 Unit/3 mL Inj SUBQ SCH ×4 (08:00→22:00)
[2016-03-22] MEDS: Polyethylene Glycol (PEG) 17 Gm Powder PO SCH (08:30)
[2016-03-22 09:20] VITALS: BP 138/66; PULSE 74; RESP 16; O2SAT 83
[2016-03-22] MEDS: predniSONE 20 mg Tablet PO SCH (09:25)
[2016-03-22] MEDS: MeTOProlol XL 25 mg ER24 Tablet PO SCH ×2 (09:25→20:04)
[2016-03-22] MEDS: Fluticasone-Salmererol 250-50 Inhaler INHALATION SCH ×2 (09:26→20:05)
--- NOTE | 2016-03-22 10:48 | NUR ---
[facility] SI[facility]ed
--- NOTE | 2016-03-22 13:02 | PCM.PNMED ---
Subjective Date of Service Mar 22, 2016 Subjective Bernardo Butt is an 85 year old male with a history of stage 4 COPD and diabetes mellitus type 2 presenting to the ED via EMS complaining of SOB and cough, which worsened in the last 8-10 days. Admitted and treated for influenza A, acute hypercarbic respiratory failure, MAT, and newly diagnosed systolic heart failure. Hospital day 5. Overnight: Patient stable overnight. Seroquel 12.5 mg tolerated well and patient states he best night of sleep he has had in the last month. Today: Hospice meeting this morning. Hospice will establish with patient on or 03/25. Patient alert and oriented and currently using 3L nasal cannula. He continues to complain of weakness and fatigue. Patient would like to be place back on general diet and understands risks associated. He denies any chest pain , palpitations, nausea, vomiting, abdominal pain, fever, or chills. Remaining review of systems negative. Exam Vital Signs Vital Sign - Last Date Time Temp Pulse Resp B/P Pulse Ox O2 Delivery O2 Flow Rate FiO2 03/22/16 09:20 74 16 138/66 83 Nasal Cannula 4.00 03/22/16 03:15 36.5 03/20/16 16:30 32 Intake and Output 03/21/16 03/21/16 03/22/16 Cumulative From/Thru 15:00 23:00 07:00 03/18/16 15:51 - 03/22/16 05:53 Intake Total 57 ml 715 ml 4947 ml Output Total 925 ml 3100 ml Balance 57 ml -210 ml 1847 ml Intake Oral 640 ml 1910 ml IV Total 57 ml 75 ml 3037 ml Output Urine Total 925 ml 3100 ml # Bowel Movements 0 Exam General: Elderly cachectic frail appearing gentleman, no acute distress, appropriately interactive. HEENT: Temporal wasting. Hearing aids in place. Anicteric sclerae, moist conjunctivae, and no lid lag. Mucous membranes dry. Nasal cannula in place. Neck: Supple with full range of motion. Cardiovascular: Irregular rate and rhythm with soft murmur. Pulmonary: Shallow breaths. Clear to auscultation bilaterally. Normal respiratory effort with no use of accessory muscles. Abdomen: Bowel tones present. Scaphoid, soft, nontender, nondistended. No hepatosplenomegaly or masses appreciated. Extremities: Muscle wasting and no edema. Skin: Normal temperature, decreased turgor, and texture; no rash, ulcers, or subcutaneous nodules appreciated. Neurological: Cranial nerves grossly intact. Psychiatric: Normal mood and affect. Alert and oriented to person, place, and time. Lab and Diagnostics Result Diagram: 03/22/16 03203/22/16326 X-Rays, CTs and MRIs X-RAY CHEST ONE VIEW, PORTABLE IMPRESSION: Patchy pulmonary radiopacity suspicious for aspiration/infection. Short interval followup is recommended to ensure resolution of this finding and exclude underlying pulmonary pathology. Dictated by: Moraima Viera M.D. on 03/18/2016 at 18:05 Approved by: Moraima Viera M.D. on 03/18/2016 at 18:06 12-lead ECG ECG Interpretation: Sinus tachycardia, rate 102. Borderline RBBB. Non-specific T wave abnormalities inferiorally. No prior EKG for comparison. Time: 17:20 Interpreted by: ED physician ECG Interpretation: More tachycardic but has received multiple nebs. More movement making baseline slightly more difficult. Overall unchanged. Time: 19:48 Interpreted by: ED physician Cardiac Echo Impressions Echocardiogram Report Interpretation Summary 1. Normal left ventricular size, wall thickness with globally reduced LV systolic function and an estimated EF of 35% 2. Normal right ventricular size and systolic function 3. No evidence for significant valvular pathology Compared to the previous study of 2006 (images reviewed), the rhythm has changed and the LV function appears reduced. Reading Physician:04:44 PM Assessment & Plan Bernardo Butt is an 85 year old male with a hx of stage 4 COPD and DM2 presenting to the ED via EMS complaining of SOB and cough, which worsened in the last 8-10 days. Admitted and treated for influenza A and acute hypercarbic respiratory failure. Patient and family met with Hospice today and will establish on 03/24 or 03/25. Hospital day 5. 1. Acute systolic heart failure, present on admission. Active. - Newly diagnosed with echo 03/20 showing global hypokinesis of the left ventricle and an EF of 35%. - Aspirin 81 mg daily. - Lisinopril 2.5 mg daily. - Metoprolol succinate 25 mg BID. - Lasix 10 mg PO. - Cardiology consulted. Appreciate time and expertise. 2. Influenza A, present on admission. Active. - Oseltamivir 75 mg BID x10 doses. - Treatment as above. 3. Multifocal atrial tachycardia, present on admission. Active. - Common finding in patients with COPD. - Diltiazem gtt started on 03/19 and switched to oral metoprolol succinate on . - Monitor on telemetry. 4. Acute on chronic hypercarbic respiratory failure, present on admission. Active. - Etiology secondary to influenza A and COPD. - Patient received one dose of Solu-Medrol 125mg in ED. - ABG in ED with pH 7.206, CO2 83.5, O2 60.6 HCO3 31.8. Improved this morning after BPAP. 5. Dysphagia, present on admission. Active. - Ongoing for greater than 6 months. Reason for decreased appetite. - Barium swallow results revealed significant impairment. - Nutrition consulted and placing order for tube feeds. - Plan to discharge home with tube feeds until CT can be obtained in 1 week. 6. Possible community acquired pneumonia, present on admission. Active. - CURB 65 score of 2 - CXR showed "Patchy pulmonary radiopacity suspicious for aspiration/infection. " - Ceftriaxone and Azithromycin started in ED. 5-day course completed on 03/22. - Strep pneumonia and legionella negative. - Procalcitonin 0.17 initially trended down to 0.07. 7. Acute COPD exacerbation, present on admission. Active. - One dose of Solu-Medrol 125mg in ED. - Prednisone 40 mg daily. - Supplemental oxygen as needed to maintain oxygen saturation of 88-92%. - DuoNebs Q4H. - Fluticasone/Salmeterol BID. 8. Hyperkalemia, present on admission. Resolved. - No EKG changes. - Potassium normalized. 9. QT prolongation, present on admission. Resolved. - Monitoring on telemetry. - Avoid QT prolongation medications. 10. Diabetes Mellitus Type 2, present on admission. - Metformin and Glipizide held. - Low dose correctional scale insulin protocol. - Hemoglobin A1c 7.2. 11. Severe protein malnutrition, present on admission. Active. - Nutrition consulted. - Poor oral intake. - Supplements provided. 12. Anxiety/Insomnia, not present on admission. Active. - Seroquel 12.5 mg BID. - Acetaminophen as needed for mild pain/fever/headache - Bowel regimen as needed - Antiemetic as needed Disposition: Patient to discharge in 1-2 days with hospice. Pain Evaluation: Adequate Pain Control GI Prophylaxis: Not indicated VTE Prophylaxis: Sub-Q Heparin (Unfractionated) VTE Mechanical Devices: Intermittant Pneumatic CD Resuscitation Status: DNR/DNI:Do Not Resuscitate/Intubate Attending Statement The patient was seen and examined together with Dr. Mcpherson on 03/22/2016 and I agree with the history, exam and plan as outlined in the note above. . ADAIR MCPHERSON DO Mar 22, 2016 13:02 Preston Moser MD Mar 22, 2016 15:03
--- NOTE | 2016-03-22 14:12 | NUR ---
Anxiety Patient c/o feeling anxious. MD notified and PO Seroquel given. Patient resting in bed with eyes closed.
[2016-03-22 16:00] VITALS: BP 126/69; PULSE 76; RESP 20; O2SAT 93
[2016-03-22] MEDS ORDERED: cefTRIAXone Inj 2,000 MG in Dextrose 5% Minibag Plus 50 ML IV SCH (18:00)
[2016-03-22 19:46] VITALS: BP 126/69; PULSE 70; RESP 20; O2SAT 96
--- NOTE | 2016-03-22 22:20 | NUR ---
Nutrition/Lung sounds Pt ate dinner without assistance. Pt ate soup and 1/2 vanilla pudding without choking or coughing. Lung sounds with less crackles than 03/21 stove polisher assessment.
[2016-03-22 23:30] VITALS: BP 133/76; PULSE 76; RESP 18; O2SAT 95
[2016-03-23 02:50] VITALS: BP 113/58; PULSE 56; RESP 18; O2SAT 97
[2016-03-23 03:14] LABS: Magnesium 1.8 mg/dL (1.6-2.6)
[2016-03-23 07:53] VITALS: BP 120/61; PULSE 70; RESP 20; O2SAT 94
[2016-03-23] MEDS: Fluticasone-Salmererol 250-50 Inhaler INHALATION SCH (08:00)
[2016-03-23] MEDS: predniSONE 20 mg Tablet PO SCH (08:00)
[2016-03-23] MEDS: MeTOProlol XL 25 mg ER24 Tablet PO SCH (08:01)
[2016-03-23] MEDS: Insulin LISPRO 300 Unit/3 mL Inj SUBQ SCH ×2 (08:01→12:03)
[2016-03-23] MEDS: Heparin 5,000 Unit/mL Inj SUBQ SCH (08:02)
[2016-03-23] MEDS: Polyethylene Glycol (PEG) 17 Gm Powder PO SCH (08:02)
[2016-03-23] MEDS ORDERED: METO25TA99 PO (12:46)
[2016-03-23] MEDS ORDERED: QUET25TA73 PO (12:46)
[2016-03-23] MEDS ORDERED: FUR20 PO (12:46)
[2016-03-23] MEDS ORDERED: MORP10SO PO (12:46)
[2016-03-23] MEDS ORDERED: LISI-571 PO (12:46)
[2016-03-23] MEDS ORDERED: LORA2ORA4 PO (12:46)
[2016-03-23] MEDS ORDERED: ATRO2DRO4 OD (12:46)
--- NOTE | 2016-03-23 12:52 | PCM.DIMED ---
Tatyana Gonzalez DO 03/23/16 1252: Discharge Instructions Date of Service Mar 23, 2016 Dates of Hospitalization Mar 18, 2016 at 20:28 Discharge Diagnosis Discharge Diagnosis 1. Acute systolic heart failure, present on admission. Active. 2. Influenza A, present on admission. Active. 3. Multifocal atrial tachycardia, present on admission. Active. 4. Acute on chronic hypercarbic respiratory failure, present on admission. Active. 5. Dysphagia, present on admission. Active. 6. Possible community acquired pneumonia, present on admission. Active. 7. Acute COPD exacerbation, present on admission. Active. 8. Hyperkalemia, present on admission. Resolved. 9. QT prolongation, present on admission. Resolved. 10. Diabetes Mellitus Type 2, present on admission. 11. Severe protein malnutrition, present on admission. Active. 12. Anxiety/Insomnia, not present on admission. Active. Medication Instructions You were provided some new medications that are for comfort measures. They are all liquid forms for under the tongue. The doses should last for at least a week , but anticipate they will last for longer. Hospice will provide you with refills. Diet No restrictions Activity No restrictions Patient Instructions You will start with hospice soon. Some of your medications were continued that should help with your symptoms of heart failure, otherwise your medications were discontinued. Preston Moser MD 03/28/16 1607: Discharge Instructions Attending's Statement The patient was seen and examined together with Dr. Gonzalez on 03/23/2016 and I agree with the history, exam and plan as outlined in the note above. . Tatyana Gonzalez DO Mar 23, 2016 12:52 Preston Moser MD Mar 28, 2016 16:07
--- NOTE | 2016-03-23 13:50 | NUR ---
Discharge Patient is signed up with [facility] which will start on Thursday. Discharge instruction and paper Rx printed and reviewed verbally with patient and patients family. MD prescribed comfort meds to cover patient until hospice can meet with him on Thursday. IV DC'd intact. All patient questions answered. Patient left unit via wheelchair with all personal belongings accompanied by his and daughter. He discharged home via personal vehicle.
--- NOTE | 2016-03-23 14:28 | NUR ---
Social Work: Discharge D: Pt discussed in am rounds. Pt has signed consents with [facility]. GEODETIC ENGINEER spoke with hospice this morning who states that they will be delivering a hospital bed for the pt today and will be opening on Sunday 03/26. Pt is already established with home 02 through [facility]. A: Pt who has signed consents for hospice. P: Pt to discharge home today via POV and hospice to open on Thursday. CARLEE Barraza
--- NOTE | 2016-03-24 16:04 | PCM.DC.MED ---
Discharge Summary Date of Service Mar 24, 2016 Dates of Hospitalization Date of Hospital Admission Mar 18, 2016 at 20:28 Date of Discharge: Mar 23, 2016 Providers: Admitting Physician: Matheus Liang MD [facility]ending Physician: Matheus Liang MD Diagnosis at Time of Discharge Diagnosis at Time of Discharge 1. Acute systolic heart failure, present on admission. Active. 2. Influenza A, present on admission. Active. 3. Multifocal atrial tachycardia, present on admission. Active. 4. Acute on chronic hypercarbic respiratory failure, present on admission. Active. 5. Dysphagia, present on admission. Active. 6. Possible community acquired pneumonia, present on admission. Active. 7. Acute COPD exacerbation, present on admission. Active. 8. Hyperkalemia, present on admission. Resolved. 9. QT prolongation, present on admission. Resolved. 10. Diabetes Mellitus Type 2, present on admission. 11. Severe protein malnutrition, present on admission. Active. 12. Anxiety/Insomnia, not present on admission. Active. Consultations Palliative care Cardiology Procedures XRay, CTs & MRIs X-RAY CHEST ONE VIEW, PORTABLE IMPRESSION: Patchy pulmonary radiopacity suspicious for aspiration/infection. Short interval followup is recommended to ensure resolution of this finding and exclude underlying pulmonary pathology. Dictated by: Moraima Viera M.D. on 03/18/2016 at 18:05 Approved by: Moraima Viera M.D. on 03/18/2016 at 18:06 ECG 12 Lead ECG Interpretation: Sinus tachycardia, rate 102. Borderline RBBB. Non-specific T wave abnormalities inferiorally. No prior EKG for comparison. Time: 17:20 Interpreted by: ED physician ECG Interpretation: More tachycardic but has received multiple nebs. More movement making baseline slightly more difficult. Overall unchanged. Time: 19:48 Interpreted by: ED physician Cardiac Echo Impression Echocardiogram Report Interpretation Summary 1. Normal left ventricular size, wall thickness with globally reduced LV systolic function and an estimated EF of 35% 2. Normal right ventricular size and systolic function 3. No evidence for significant valvular pathology Compared to the previous study of 2006 (images reviewed), the rhythm has changed and the LV function appears reduced. Reading Physician:04:44 PM Brief History From Dr. Snow's H and P: "85-year-old gentleman under the care of [facility] with diagnosis of severe COPD on chronic O2 usually at 3 L recently increasing due to increasing shortness of breath. He has had increased symptoms over the past 8-10 days with increased cough shortness of breath. He was evaluated through the emergency room noting patchy infiltrates on chest x-ray and his initial blood gases pH 7.2 PCO2 of 83 PO2 of 60. Follow-up blood gases 7.41 PCO2 of 48.7 and a PO2 of 65.8 on 3 L. He denies known heart disease and denies exertional chest discomfort but does have baseline [place]. He has a smoking history of at least 40 pack years discontinued in 1986. Echocardiogram done during this admission noted global hypokinesis with an EF of 35% but normal right-sided pressures. He has no history of alcohol overuse drinks socially but stopped drinking altogether approximately 2 years ago. He otherwise has a diagnosis of type II diabetes. 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 He had a pulmonary evaluation through the [facility] starting 20 years ago with follow-up possibly in the last 5 years and was told he was okay. He has had anorexia for approximately 6 months has lost about 40 pounds has dysphagia that he identifies particularly with solid foods such as bread so he has been drinking 3-4 Ensure per day in conjunction with small amounts he has been eating. Despite this he has continued to lose weight. He believes he had a colonoscopy about 10 years ago and said it was negative. He is a family history of colon cancer- mother of colon cancer in her 60s, his son of colon cancer as well as tracheal cancer mid 50s. He had one brother who had pneumonectomy for lung CA - smoker. Patient has noted no change in bowel movements and no blood. He did have 1 day of diarrhea but that completely resolved. He defines his main limiting factor being dyspnea which he recognizes has progressed over the past year He is lives with his . Their 2 daughters and their family also live on their farm outside of [place]." Hospital Course Bernardo Butt is an 85 year old male with a hx of stage 4 COPD and DM2 presenting to the ED via EMS complaining of SOB and cough, which worsened in the last 8-10 days. Admitted and treated for influenza A and acute hypercarbic respiratory failure. Patient and family met with Hospice today and will establish on 03/24 or 03/25. Hospital day 6. 1. Acute systolic heart failure, present on admission. Active. - Newly diagnosed with echo 03/20 showing global hypokinesis of the left ventricle and an EF of 35%. - Aspirin 81 mg daily. - Lisinopril 2.5 mg daily. - Metoprolol succinate 25 mg BID. - Lasix 10 mg PO. - Cardiology consulted. Appreciate time and expertise. 2. Influenza A, present on admission. Active. - Oseltamivir 75 mg BID x10 doses. - Treatment as above. 3. Multifocal atrial tachycardia, present on admission. Active. - Common finding in patients with COPD. - Diltiazem gtt started on 03/19 and switched to oral metoprolol succinate on . - Monitored on telemetry. 4. Acute on chronic hypercarbic respiratory failure, present on admission. Active. - Etiology secondary to influenza A and COPD. - Patient received one dose of Solu-Medrol 125mg in ED. - ABG in ED with pH 7.206, CO2 83.5, O2 60.6 HCO3 31.8. Improved after BPAP. 5. Dysphagia, present on admission. Active. - Ongoing for greater than 6 months. Reason for decreased appetite. - Barium swallow results revealed significant impairment. - Nutrition consulted. Patient refused tube feeds via NGT or PEG. 6. Possible community acquired pneumonia, present on admission. Active. - CURB 65 score of 2 - CXR showed "Patchy pulmonary radiopacity suspicious for aspiration/infection. " - Ceftriaxone and Azithromycin started in ED. 5-day course completed on 03/22. - Strep pneumonia and legionella negative. - Procalcitonin 0.17 initially trended down to 0.07. 7. Acute COPD exacerbation, present on admission. Active. - One dose of Solu-Medrol 125mg in ED. - Prednisone 40 mg daily x5 days. - Supplemental oxygen as needed to maintain oxygen saturation of 88-92%. - DuoNebs Q4H. - Fluticasone/Salmeterol BID. 8. Hyperkalemia, present on admission. Resolved. - No EKG changes. - Potassium normalized. 9. QT prolongation, present on admission. Resolved. - Monitored on telemetry. - Avoided QT prolongation medications. 10. Diabetes Mellitus Type 2, present on admission. - Metformin and Glipizide held. - Low dose correctional scale insulin protocol. - Hemoglobin A1c 7.2. 11. Severe protein malnutrition, present on admission. Active. - Nutrition consulted. - Poor oral intake. - Supplements provided. 12. Anxiety/Insomnia, not present on admission. Active. - Seroquel 12.5 mg BID. - Acetaminophen as needed for mild pain/fever/headache - Bowel regimen as needed - Antiemetic as needed Exam Vital Signs (Last) Date Time Temp Pulse Resp B/P Pulse Ox O2 Delivery O2 Flow Rate FiO2 03/23/16 08:00 Supplement Oxygen 03/23/16 07:53 36.8 70 20 120/61 94 6.00 03/20/16 16:30 32 Exam General: Elderly cachectic frail appearing gentleman, no acute distress, appropriately interactive. HEENT: Temporal wasting. Hearing aids in place. Anicteric sclerae, moist conjunctivae, and no lid lag. Mucous membranes dry. Nasal cannula in place. Neck: Supple with full range of motion. Cardiovascular: Irregular rate and rhythm with soft murmur. Pulmonary: Shallow breaths. Clear to auscultation bilaterally. Normal respiratory effort with no use of accessory muscles. Abdomen: Bowel tones present. Scaphoid, soft, nontender, nondistended. No hepatosplenomegaly or masses appreciated. Extremities: Muscle wasting and no edema. Skin: Normal temperature, decreased turgor, and texture; no rash, ulcers, or subcutaneous nodules appreciated. Neurological: Cranial nerves grossly intact. Psychiatric: Normal mood and affect. Alert and oriented to person, place, and time. Test 03/18/16 15:47 03/18/16 17:03 03/18/16 18:05 03/18/16 18:11 Hold Purple Top Tube Received (Received) Hold Blue Top Tube Received (Received) Hemoglobin A1c 7.2% (4.8-5.6) Troponin T < 0.010ug/L (0.0-0.011) Hold Red Top Tube Received (Received) Hold [place] Top Tube Received (Received) Lactic Acid Level 1.6mmol/L (0.4-2.0) Urine Legionella pneumophilia Ag Negative (Negative) Urine Color Yellow (YELLOW) Urine Appearance Clear (CLEAR,HAZY) Urine pH 5.5 (5.0-8.0) Urine Specific [place] 1.037 (1.003-1.035) Urine Protein 100mg/dL (NEG,TRACE) Urine Glucose (UA) 500mg/dL (NEGATIVE) Urine Ketones 15mg/dL (NEGATIVE) Urine Occult Blood Negative (NEGATIVE) Urine Nitrite Negative (NEGATIVE) Urine Bilirubin Negative (NEGATIVE) Urine Urobilinogen Normalmg/dL (NORMAL) Urine Leukocyte Esterase Negative (NEGATIVE) Urine RBC 0-2/hpf (0-2) Urine WBC 6-10/hpf (0-5) Urine Epithelial Cells Few/hpf (NONE-MOD) Urine Crystals Amorphous urates (NONE Urine Bacteria Moderate/hpf (NONE-FEW) Urine Hyaline Casts 5/20/lpf (NONE) Urine Granular Casts None seen (NONE SEEN) Urine Waxy Casts None seen (NONE SEEN) Urine Red Blood Cell Casts None seen (NONE SEEN) Urine White Blood Cell Casts None seen (NONE SEEN) Urine Mucus Present (None Seen) Urine Trichomonas None seen (NONE SEEN) Urine Yeast None (NONE SEEN) Urinalysis Comment None Urine Culture Reflexed Indicated Test 03/19/16 03:35 03/19/16 03:39 03/20/16 03:00 03/21/16 03:04 Hematology Comments Platelet Thyroid Stimulating Hormone (TSH) 0.667uIU/mL (0.450-4.500) Free Thyroxine 1.28ng/dL (0.82-1.77) Phosphorus Level 2.1mg/dL (2.5-4.9) Total Bilirubin 0.2mg/dL (0.0-1.2) Aspartate Amino Transf (AST/SGOT) 25U/L (0-50) Alanine Aminotransferase (ALT/SGPT) 30U/L (0-44) Alkaline Phosphatase 62U/L (25-160) Total Protein 5.4g/dL (6.4-8.4) Albumin 2.7g/dL (3.4-5.0) Test 03/22/16 03:27 03/23/16 02:35 White Blood Count 12.4th/mm3 (3.8-10.1) Red Blood Count 3.76mil/mm3 (4.40-5.80) Hemoglobin 11.2g/dL (13.8-17.2) Hematocrit 36.2% (41.0-50.0) Mean Corpuscular Volume 96.3fL (81-100) Mean Corpuscular Hemoglobin 29.8pg (27.0-35.0) Mean Corpuscular Hemoglobin Concent 30.9% (32.0-37.0) Red Cell Distribution Width 13.3% (12.3-15.4) Platelet Count 288bil/L (150-400) Neutrophils (%) (Auto) 76.8% (40-74) Lymphocytes (%) (Auto) 11.9% (14-46) Monocytes (%) (Auto) 9.0% (4-12) Eosinophils (%) (Auto) 0% (0-5) Basophils (%) (Auto) 0.2% (0-3) Procalcitonin < 0.05ng/mL (See Comment) Sodium Level 139mEq/L (134-144) Potassium Level 4.2mEq/L (3.5-5.2) Chloride Level 95mEq/L (97-108) Carbon Dioxide Level 38mmol/L (18-29) Blood Urea Nitrogen 17mg/dL (8-27) Creatinine 0.53mg/dL (0.76-1.27) Estimat Glomerular Filtration Rate 157mL/min (>59) Glucose Level 198mg/dL (60-99) Calcium Level 9.0mg/dL (8.5-10.1) Magnesium Level 1.8mg/dL (1.6-2.6) Discharge Medications Discharge Medications Atropine Sulfate (Atropine Sulfate) 15 Drop/Ml Drop 225 DROP OD Q4H Prescribed by: YOJANA FOOTE DO Budesonide/Formoterol 160-4.5 mcg Inh (Symbicort 160-4.5 mcg Inh) 120 Puff Inhaler 1 PUFF INHALATION BID (Reported) Furosemide (Furosemide) 20 Mg Tab 10 MG PO DAILY Prescribed by: YOJANA FOOTE DO Lisinopril (Lisinopril) 5 Mg Tablet 2.5 MG PO DAILY Prescribed by: YOJANA FOOTE DO Metoprolol Succinate ER (Metoprolol Succinate ER) 25 Mg Tab.er.24h 25 MG PO BID Prescribed by: YOJANA FOOTE DO Quetiapine Fumarate (Quetiapine Fumarate) 25 Mg Tablet 12.5 MG PO BID Prescribed by: YOJANA FOOTE DO Simvastatin (Simvastatin) 20 Mg Tablet 10 MG PO HS (Reported) As needed Lorazepam (Lorazepam Oral Concentrate) 2 Mg/1 Ml Oral.conc 0.25-2 MG PO TID PRN PRN For Anxiety Prescribed by: YOJANA FOOTE DO Morphine Sulfate Oral Soln (Morphine Sulfate Oral Soln) 10 Mg/5 Ml Solution 5- 20 MG PO Q1H PRN PRN For Shortness of Breath Prescribed by: YOJANA FOOTE DO Additional med instructions You were provided some new medications that are for comfort measures. They are all liquid forms for under the tongue. The doses should last for at least a week , but anticipate they will last for longer. Hospice will provide you with refills. Followup Plan Discharge Diet: No restrictions Discharge Activity: No restrictions Patient Instructions You will start with hospice soon. Some of your medications were continued that should help with your symptoms of heart failure, otherwise your medications were discontinued. Time spent Greater than 30 minutes was spent in preparation of discharge with greater than 50% of that time dedicated to patient counseling and coordination of care. . Attending Statement The patient was seen and examined together with Dr. Foote on 03/23/2016 and I agree with the history, exam and plan as outlined in the note above. . Yojana Foote DO Mar 24, 2016 16:04 Preston Moser MD Mar 28, 2016 16:08
== END 2016-03-23 13:56 | disposition hospice, home (50) | DRG 291 ==
LOC: SED 15:25 → EDBD 15:25 → EDUNIT# 15:25 → OFED 20:28 → PCC 21:50
PROVIDERS: ADMIT Hospitalist; ATTEND Hospitalist
PROC: 4A033R1 Measurement of Arterial Saturation, Peripheral, Percutaneous Approach (ICD-10-PCS; principal; 2016-03-18)
DX: I50.21 Acute systolic (congestive) heart failure (principal); J18.9 Pneumonia, unspecified organism; J96.22 Acute and chronic respiratory failure with hypercapnia; E43 Unspecified severe protein-calorie malnutrition; J44.1 Chronic obstructive pulmonary disease with (acute) exacerbation; E87.4 Mixed disorder of acid-base balance; R64 Cachexia; Z68.1 Body mass index [BMI] 19.9 or less, adult; I47.1 Supraventricular tachycardia; J10.1 Influenza due to other identified influenza virus with other respiratory manifestations; R13.10 Dysphagia, unspecified; Z99.81 Dependence on supplemental oxygen; Z87.891 Personal history of nicotine dependence; E87.5 Hyperkalemia; E11.9 Type 2 diabetes mellitus without complications; Z79.84 Long term (current) use of oral hypoglycemic drugs; Z51.5 Encounter for palliative care; Z66 Do not resuscitate; F41.9 Anxiety disorder, unspecified; G47.00 Insomnia, unspecified